=== PATIENT | female | born 2000 | race Caucasian/White ===

== ENCOUNTER 2022-10-10 17:39 | Emergency (ER) | payer OTHER, SELFPAY ==
[2022-10-10 17:50] VITALS: BP 140/75; PULSE 109; RESP 16; TEMP 37.2; O2SAT 98
--- NOTE | 2022-10-10 17:59 | ED.URI ---
HPI - URI/Sore Throat General Chief Complaint: Upper Respiratory Infection Stated Complaint: Sore Throat Time Seen by Provider: 10/10/22 17:59 History of Present Illness HPI Narrative: PATIENT STATES SHE HAS A SORE THROAT THAT STARTED TODAY HISTORY OF STREP NO FEVER NO TROUBLE SWALLOWING Related Data Home Medications Medication Instructions Recorded Confirmed bupropion HCl 300 mg 24 hr tablet, 300 mg PO QAM 10/10/22 10/10/22 extended release hydroxyzine HCl 25 mg tablet 25 mg PO TID PRN Anxiety 10/10/22 10/10/22 sertraline 100 mg tablet 100 mg PO DAILY 10/10/22 10/10/22 Allergies Allergy/AdvReac Type Severity Reaction Status Date / Time amoxicillin Allergy Intermediate Rash Verified 10/10/22 18:09 clonidine AdvReac Intermediate Nausea and Verified 10/10/22 18:10 Vomiting sulfamethoxazole AdvReac Intermediate Nausea and Verified 10/10/22 18:08 [From Bactrim] Vomiting trimethoprim [From Bactrim] AdvReac Intermediate Nausea and Verified 10/10/22 18:08 Vomiting Review of Systems Review of Systems: CONSTITUTIONAL: DENIES FEVER, CHILLS, OR SWEATS. EYES: DENIES VISUAL CHANGES, REDNESS, OR DISCHARGE. ENT: DENIES RHINORRHEA, CONGESTION, SORE THROAT, OR OTALGIA. CARDIOVASCULAR: DENIES CHEST PAIN, PALPITATIONS, OR EDEMA. RESPIRATORY: DENIES COUGH OR DYSPNEA. GASTROINTESTINAL: DENIES ABDOMINAL PAIN, NAUSEA, VOMITING, OR DIARRHEA. GENITOURINARY: DENIES DYSURIA OR HEMATURIA. SKIN: DENIES RASH OR ITCHING. MUSCULOSKELETAL: DENIES BACK PAIN, JOINT PAIN, OR MYALGIA. NEUROLOGIC: DENIES HEADACHE, NUMBNESS, OR WEAKNESS. PSYCHIATRIC: DENIES ANXIETY OR DEPRESSION. PMFSH Comments AT TIME OF SIGNATURE, AGREE WITH NURSING PAST MEDICAL, SURGICAL, SOCIAL AND FAMILY HISTORY. THERE IS NO RELEVANT FAMILY HISTORY PERTINENT TO THE PRESENTING COMPLAINT Exam Narrative: GENERAL: WELL-APPEARING, WELL-NOURISHED, AND IN NO ACUTE DISTRESS. HEAD: NORMOCEPHALIC, ATRAUMATIC. EYES: PERRLA AND EOMI. ENT: NARES CLEAR, NO RHINORRHEA OR EPISTAXIS. MUCOUS MEMBRANES MOIST. MILD PHARYNGEAL EDEMA NO EXUDATE NECK: SUPPLE. CHEST: CLEAR TO AUSCULTATION. NO RESPIRATORY DISTRESS. HEART: REGULAR RATE AND RHYTHM. NO MURMUR HEARD. NORMAL PERIPHERAL PULSES. ABDOMEN: SOFT, NONTENDER, NONDISTENDED, NORMAL ACTIVE BOWEL SOUNDS. EXTREMITIES: NORMAL RANGE OF MOTION. NO EDEMA. SKIN: WARM, DRY, NO RASH. NEURO: NO FOCAL DEFICITS. ALERT AND ORIENTED X3. MYRON COMA SCALE EYE OPENING: SPONTANEOUS 4 MYRON COMA SCALE MOTOR: OBEYS COMMANDS 6 MYRON COMA SCALE VERBAL: ORIENTED 5 MYRON COMA SCALE TOTAL 15 Course Course Level of Care: Express Care Visit Vital Signs Vital signs: Vital Signs Temperature 37.2 C 10/10/22 17:50 Pulse Rate 109 H 10/10/22 17:50 Respiratory Rate 16 10/10/22 17:50 Blood Pressure 140/75 10/10/22 17:50 Pulse Oximetry 98 10/10/22 17:50 Oxygen Delivery Room Air 10/10/22 17:50 Temperature 37.2 C 10/10/22 17:50 Pulse Rate 109 H 10/10/22 17:50 Respiratory Rate 16 10/10/22 17:50 Blood Pressure 140/75 10/10/22 17:50 Pulse Oximetry 98 10/10/22 17:50 Oxygen Delivery Room Air 10/10/22 17:50 PLEASE EDDIE SCHEDULE A FOLLOWUP VISIT WITH YOUR PERSONAL PHYSICIAN FOR FURTHER EVALUATION AND TREATMENT. INCLUDING RECHECK AND DISCUSSION OF YOUR BLOOD PRESSURE. IF YOUR SYMPTOMS PERSIST, CHANGE OR WORSEN SIGNIFICANTLY BEFORE YOU CAN CONTACT YOUR PERSONAL PHYSICIAN THEN PLEASE, WITHOUT DELAY, GO TO THE EMERGENCY DEPARTMENT FOR FURTHER EVALUATION MDM - URI/Sore Throat Differential Diagnosis Differential diagnosis: Likely upper respiratory infection, croup, otitis media, sinusitis, viral infection, bronchitis, influenza and pharyngitis Lab Data Labs: Strep Screen Positive Group A Strep *(Reference Range: Negative)* Strep Screen Positive Group A Strep *(Reference Range: Negative)* Discharge Plan D
== END 2022-10-10 18:10 | disposition home or self-care (01) ==
PROVIDERS: Emergency Provider Nurse Practitioner Family; PCP Family Medicine
DX: J02.0 Streptococcal pharyngitis (principal); F41.9 Anxiety disorder, unspecified; F32.A Depression, unspecified
CPT/HCPCS: 87880; 99213; G0463

== ENCOUNTER 2022-12-20 08:48 | Outpatient (CLI) | payer OTHER, SELFPAY ==
[2022-12-20 16:46] LABS: Hematocrit 44.2 % (37.0-47.0); Hemoglobin 14.2 g/dL (12.0-15.0); Mean Corpuscular HGB Conc 32.1 g/dl (32-36); Mean Corpuscular Hemoglobin 29.6 pg (26-34); Mean Corpuscular Volume 92.1 fl (80-100); Mean Platelet Volume 9.7 fl (7.4-10.4); Platelet Count Result 362 k/mm3 (150-375); White Blood Count 7.8 K/mm3 (4.5-10.0)
[2022-12-20 17:46] LABS: Alanine Aminotransferase 19 U/L (6-35); Albumin Level 4.3 g/dL (3.5-5.1); Alkaline Phosphatase 93 U/L (38-126); Anion Gap 10 mmol/L (8-16); Aspartate Amino Transferase 56 U/L (14-36); Bilirubin,Total 0.4 mg/dL (0.2-1.3); Blood Urea Nitrogen 15 mg/dL (7-17); Calcium 8.8 mg/dL (8.4-10.2); Carbon Dioxide 22 mmol/L (22-30); Chloride 107 mmol/L (98-107); Cholesterol 197 mg/dL (0-200); Estimated Glomerular Filt Rate > 60; Glucose 90 mg/dL (65-110); HDL Direct 42 mg/dL; Potassium 3.6 mmol/L (3.4-5.0); Sodium 139 mmol/L (137-145); Triglycerides 114 mg/dL (<150)
[2022-12-20 17:57] LABS: LDL Cholesterol Direct 112 mg/dL
[2022-12-20 18:07] LABS: Vitamin D 25 Hydroxy 24.7 ng/mL
== END 2022-12-20 08:49 | disposition home or self-care (01) ==
LOC: ANHWCLAB 08:53
PROVIDERS: PCP Family Medicine; Visit Provider Family Medicine
DX: Z00.00 Encounter for general adult medical examination without abnormal findings (principal); F32.A Depression, unspecified; F41.9 Anxiety disorder, unspecified; G43.909 Migraine, unspecified, not intractable, without status migrainosus
CPT/HCPCS: 36415; 80053; 80061; 82306; 85027

== ENCOUNTER 2023-03-25 11:57 | Emergency (ER) | payer OTHER, SELFPAY ==
--- NOTE | 2023-03-25 12:01 | ED.URI ---
HPI - URI/Sore Throat General Chief Complaint: Upper Respiratory Infection Stated Complaint: sore throat Time Seen by Provider: 03/25/23 12:17 Source: patient and RN notes reviewed Mode of arrival: ambulatory Limitations: no limitations History of Present Illness HPI Narrative: 22-year-old female presents concern for sore throat that started yesterday. She reports ear pain. She denies body aches, chills, sweats, fever. She denies taking any medications for her symptoms. MD elicited complaint: sore throat Related Data Allergies Allergy/AdvReac Type Severity Reaction Status Date / Time amoxicillin Allergy Intermediate Rash Verified 03/25/23 12:22 brivaracetam Allergy Unknown Unknown Verified 03/25/23 12:22 buspirone Allergy Unknown Unknown Verified 03/25/23 12:22 levetiracetam Allergy Unknown Unknown Verified 03/25/23 12:22 clonidine AdvReac Intermediate Nausea and Verified 03/25/23 12:22 Vomiting sulfamethoxazole AdvReac Intermediate Nausea and Verified 03/25/23 12:22 [From Bactrim] Vomiting trimethoprim [From Bactrim] AdvReac Intermediate Nausea and Verified 03/25/23 12:22 Vomiting Review of Systems Review of Systems: CONSTITUTIONAL: Denies malaise, chills, sweats, or fever. EYES: Denies visual changes, redness, or discharge. ENT: Denies rhinorrhea, congestion, sinus pain. Reports otalgia and sore throat. CARDIOVASCULAR: Denies chest pain, palpitations, or edema. RESPIRATORY: Denies cough. Denies dyspnea. GASTROINTESTINAL: Denies abdominal pain, nausea, vomiting, diarrhea SKIN: Denies rash or itching. MUSCULOSKELETAL: Denies myalgia. NEUROLOGIC: Denies headache. All systems reviewed & are unremarkable except as noted in HPI and below PMFSH Family History Family History (Updated 12/13/22 @ 07:17 by Kay Carpio MA) Father Diabetes mellitus Hypertension Depression Heart disease Sleep apnea Mother Hypertension Depression Sibling Depression Sleep apnea Grandparent Hypertension Heart disease Cerebrovascular accident Grandparent Hypertension Heart disease Sleep apnea Social History Social History (Updated 12/13/22 @ 07:18 by Kay Carpio MA) Smoking status: Never smoker Alcohol intake: never Substance use: never Substance use type: does not use Lack of Transportation: No Lack of Food: Never True Current Housing: I Have Housing Concerned About Future Housing: No Difficulty Paying Gas/Electric Bills: No Difficulty Paying for Meds: No Currently Unemployed: No Education: Bachelor's Degree Difficulty w/ Childcare or Family Care: No Living arrangements: with family Gender identity (if verbalized by the patient): Female Agree to blood products: Yes Comments At time of signature, agree with nursing past medical, surgical, social and family history. There is no relevant family history pertinent to the presenting complaint Exam Narrative: GENERAL: Well-appearing, well-nourished, and in no acute distress. HEAD: Normocephalic EYES: PERRLA, conjunctivae clear ENT: Nares clear. Mucous membranes moist. TM pearly [place] with sharp light reflex bilaterally; no tragal tenderness. Oropharynx erythematous without lesions. Tonsils not enlarged and without exudate, no drooling, no hoarseness, no trismus, uvula midline. NECK: Supple. No lymphadenopathy CHEST: Clear to auscultation, breath sounds equal. No wheezing, rhonchi, rales, or stridor. No respiratory distress, speaks in full sentences. HEART: Regular rate and rhythm. No murmur heard. SKIN: Warm, dry, no rash. NEURO: Alert and oriented x3. PSYCH: Normal mood and affect Course Course Emergency Course: Patient is aware of diagnosis, understands and agrees to treatment plan. Anticipatory guidance given. Patient agrees to follow-up as directed and is aware of reasons to seek care at the emergency department. Portions of this record may have been created with voice recognition software
[2023-03-25 12:02] VITALS: BP 120/58; PULSE 87; RESP 18; TEMP 36.4; O2SAT 99
== END 2023-03-25 12:25 | disposition home or self-care (01) ==
PROVIDERS: Emergency Provider Nurse Practitioner; PCP Family Medicine
DX: J02.0 Streptococcal pharyngitis (principal)
CPT/HCPCS: 87880; 99213; G0463

== ENCOUNTER 2023-06-08 11:14 | Outpatient (CLI) | payer OTHER, SELFPAY ==
[2023-06-08 19:00] LABS: Hematocrit 45.2 % (37.0-47.0); Hemoglobin 14.5 g/dL (12.0-15.0); Mean Corpuscular HGB Conc 32.1 g/dl (32-36); Mean Corpuscular Hemoglobin 30.5 pg (26-34); Mean Corpuscular Volume 95.2 fl (80-100); Mean Platelet Volume 10.1 fl (7.4-10.4); Platelet Count Result 362 k/mm3 (150-375); Red Blood Count 4.75 M/mm3 (4.2-5.4); Red Cell Distribution Width 12.8 % (11.5-14.5); White Blood Count 8.3 K/mm3 (4.5-10.0)
[2023-06-08 19:21] LABS: Add Urine Microscopic? YES; Appearance Urine Turbid (Clear); Bacteria Urine 3+ /hpf; Bilirubin Urine Negative (Negative); Color Urine Dark Yellow (Yellow); Glucose Urine UA Negative (Negative); Ketones Urine Negative (Negative); Leukocyte Esterase Ur 3+ LEU/UL (NEGATIVE); Need Manual Microscopic Reviewed; Nitrate Urine Negative (Negative); Protein Urine Trace mg/dL (Negative); Specific Grav Ur 1.024 (1.001-1.035); Squamous Epithelial Cell Urine Moderate /hpf (Few); WBC Urine 0-5 /hpf (0-3); pH Urine 7.5 (5.0-9.0)
[2023-06-08 20:10] LABS: Alanine Aminotransferase 17 U/L (6-35); Albumin Level 4.4 g/dL (3.5-5.1); Alkaline Phosphatase 70 U/L (38-126); Anion Gap 5 mmol/L (8-16); Aspartate Amino Transferase 85 U/L (14-36); Bilirubin,Total 0.5 mg/dL (0.2-1.3); Blood Urea Nitrogen 11 mg/dL (7-17); Calcium 9.2 mg/dL (8.4-10.2); Carbon Dioxide 32 mmol/L (22-30); Chloride 105 mmol/L (98-107); Estimated Glomerular Filt Rate > 60; Glucose 74 mg/dL (65-110); Sodium 142 mmol/L (137-145)
[2023-06-08 20:18] LABS: Iron 122 ug/dL (37-170)
[2023-06-08 20:27] LABS: Percent Iron Saturation 37 % (20-50)
[2023-06-08 21:21] LABS: Folic Acid > 20.0 ng/mL (2.76->20)
[2023-06-11 04:21] LABS: Thyroid Peroxidase Antibodies <1 IU/mL (<9)
== END 2023-06-08 11:15 | disposition home or self-care (01) ==
PROVIDERS: PCP Nurse Practitioner Adult Health; Visit Provider Nurse Practitioner Adult Health
DX: R55 Syncope and collapse (principal)
CPT/HCPCS: 36415; 80053; 81001; 82607; 82728; 82746; 83540; 83550; 84439; 84443; 85027; 86376

== ENCOUNTER 2023-08-01 08:22 | Outpatient (CLI) | payer OTHER, SELFPAY ==
--- NOTE | 2023-08-01 08:36 | EST_ITS ---
Patient Info Name: Linn Mosher Age: 22 years : 2000 Gender: Female Ht: 66 in Wt: 220 lbs BSA: 2.20 m2 HR: 63 bpm BP: 106 / 74 mmHg Heart Rhythm: Sinus Rhythm Exam Date: 08/01/2023 8:48 AM Exam Location: Echo Lab Patient Status: Outpatient Admit Date: 08/01/2023 Staff Ordering Physician: Torito Mcderomtt DO Attending Provider: Torito Mcdermott DO Exercise Technologist: Florence White CT Exercise Physician: Torito Mcdermott DO Exam Type: CA stress test treadmill Study Info Indications R07.89 - Other chest pain A treadmill exercise stress test was performed. Summary 1. 1. Negative Julio exercise stress test for ischemic ST changes by ECG criteria. 2. 2. Reduced functional capacity, achieving 8 METs of workload. 3. 3. Appropriate HR response to exercise. 4. 4. Appropriate HR recovery at 1 minute post exercise. 5. 5. No imaging with stress testing. 6. 6. Patient informed of the above results. Protocol: Julio Stress ECG Details Stage: REST Duration (min): 1 min : 18 sec Speed (mph): 0.0 Grade (%): 0 HR (bpm): 66 SBP (mmHg): 106 DBP (mmHg): 74 METS: --- Stage: REST Duration (min): 4 min : 36 sec Speed (mph): 0.0 Grade (%): 0 HR (bpm): 74 SBP (mmHg): 106 DBP (mmHg): 74 METS: --- Stage: STAGE 1 Duration (min): 1 min : 0 sec Speed (mph): 1.7 Grade (%): 10 HR (bpm): 111 SBP (mmHg): 106 DBP (mmHg): 74 METS: --- Stage: STAGE 1 Duration (min): 2 min : 0 sec Speed (mph): 1.7 Grade (%): 10 HR (bpm): 119 SBP (mmHg): 106 DBP (mmHg): 74 METS: --- Stage: STAGE 1 Duration (min): 3 min : 0 sec Speed (mph): 1.7 Grade (%): 10 HR (bpm): 126 SBP (mmHg): 122 DBP (mmHg): 58 METS: --- Stage: STAGE 2 Duration (min): 1 min : 0 sec Speed (mph): 2.5 Grade (%): 12 HR (bpm): 140 SBP (mmHg): 122 DBP (mmHg): 58 METS: --- Stage: STAGE 2 Duration (min): 2 min : 0 sec Speed (mph): 2.5 Grade (%): 12 HR (bpm): 149 SBP (mmHg): 194 DBP (mmHg): 112 METS: --- Stage: STAGE 2 Duration (min): 3 min : 0 sec Speed (mph): 2.5 Grade (%): 12 HR (bpm): 158 SBP (mmHg): 122 DBP (mmHg): 60 METS: --- Stage: STAGE 3 Duration (min): 0 min : 45 sec Speed (mph): 3.4 Grade (%): 14 HR (bpm): 166 SBP (mmHg): 122 DBP (mmHg): 60 METS: --- Stage: RECOVERY Duration (min): 0 min : 15 sec Speed (mph): 1.5 Grade (%): 0 HR (bpm): 150 SBP (mmHg): 184 DBP (mmHg): 71 METS: --- Stage: RECOVERY Duration (min): 1 min : 15 sec Speed (mph): 0.0 Grade (%): 0 HR (bpm): 130 SBP (mmHg): 184 DBP (mmHg): 71 METS: --- Stage: RECOVERY Duration (min): 2 min : 15 sec Speed (mph): 0.0 Grade (%): 0 HR (bpm): 84 SBP (mmHg): 184 DBP (mmHg): 71 METS: --- Stage: RECOVERY Duration (min): 3 min : 15 sec Speed (mph): 0.0 Grade (%): 0 HR (bpm): 91 SBP (mmHg): 168 DBP (mmHg): 64 ME
--- NOTE | 2023-08-01 08:36 | ECHO_ITS ---
Patient Info Name: Linn Mosher Age: 22 years : 2000 Gender: Female Ht: 65 in Wt: 220 lbs BSA: 2.18 m2 HR: 71 bpm BP: 103 / 84 mmHg Technical Quality: Good Exam Date: 08/01/2023 9:08 AM Exam Location: Echo Lab Patient Status: Outpatient Admit Date: 08/01/2023 Staff Ordering Physician: Torito Mcdermott DO Tooling Mechanic: Veda Mayberry RDCS Attending Provider: Torito Mcdermott DO Referring Physician: Baldemar COBIAN; Exam Type: CA echo doppler color flow Study Info Indications R55 - Syncope and collapse Complete two-dimensional, color flow and Doppler transthoracic echocardiogram is performed. Summary 1. Complete two-dimensional, color flow and Doppler transthoracic echocardiogram is performed. 2. Left ventricular chamber dimension is normal. 3. Left ventricular systolic function is normal, estimated at 60-65%. 4. The left ventricular diastolic function is normal. 5. E/e' 8 is minimally elevated. 6. There is trace pulmonic regurgitation. Left Ventricle E/e' 8 is minimally elevated. Left ventricular chamber dimension is normal. Left ventricular systolic function is normal, estimated at 60-65%. The left ventricular diastolic function is normal. Right Ventricle Right ventricular chamber dimension is normal. Right ventricular systolic function is normal. Left Atria Left atrial chamber dimension is normal. Right Atria Right atrial chamber dimension is normal. Aortic Valve The aortic valve is trileaflet. There is no aortic valve stenosis. There is no aortic valve regurgitation. Pulmonic Valve There is trace pulmonic regurgitation. Mitral Valve There is no mitral valve stenosis. There is no mitral valve regurgitation. Tricuspid Valve There is no tricuspid valve regurgitation. Pericardium/Pleural There is no pericardial effusion. Inferior Vena Cava Normal inferior vena cava with >50% collapse upon inspiration consistent with normal right atrial pressure, 5 mmHg. Aorta The aortic root size at the sinus of Valsalva is normal. Left Ventricular Outflow Tract Name Value Normal LVOT 2D LVOT Diameter 2.0 cm LVOT Doppler LVOT Peak Gradient 4 mmHg LVOT Mean Gradient 2 mmHg LVOT VTI 21 cm LVOT VTI/AV VTI Ratio 0.8 LVOT Stroke Volume 64 ml LVOT CO 3.7 l/min LVOT CI 1.7 l/min/m2 Pulmonic Valve Name Value Normal RVOT Doppler RVOT Peak Gradient 1 mmHg PV Doppler PV Peak Gradient 6 mmHg Mitral Valve Name Value Normal MV Doppler ---
== END 2023-08-01 08:23 | disposition home or self-care (01) ==
LOC: ANHCARD 08:23
PROVIDERS: PCP Nurse Practitioner Adult Health; Visit Provider Internal Medicine Cardiovascular Disease
DX: R07.9 Chest pain, unspecified (principal); R55 Syncope and collapse
CPT/HCPCS: 74018; 93017; 93306

== ENCOUNTER 2023-08-01 11:32 | Outpatient (CLI) | payer OTHER, SELFPAY ==
--- NOTE | ~2023-08-01 | XR_ITS ---
Supine and upright views of the abdomen Clinical history: Diarrhea Findings: Bowel gas pattern is nonspecific. No evidence for obstruction or free air. No abnormal mass lesion or calcification is seen. Osseous structures are intact. IUD present. Impression: No significant abnormality is seen. Reviewed, dictated and finalized at [facility]. [employer]ING [employer]UTION [employer] Impression: No significant abnormality is seen.
== END 2023-08-01 11:33 | disposition home or self-care (01) ==
LOC: ANHBWCIMG 11:34
PROVIDERS: PCP Nurse Practitioner Adult Health; Visit Provider Nurse Practitioner Adult Health
DX: K52.9 Noninfective gastroenteritis and colitis, unspecified (principal)
CPT/HCPCS: 74018

== ENCOUNTER 2023-12-19 11:56 | Outpatient (CLI) | payer OTHER, SELFPAY ==
[2023-12-19 18:50] LABS: Appearance Urine Cloudy (Clear); Bacteria Urine 2+ /hpf; Bilirubin Urine Negative (Negative); Blood Urine Negative (Negative); Color Urine Yellow (Yellow); Glucose Urine UA Negative (Negative); Ketones Urine Trace mg/dL (Negative); Leukocyte Esterase Ur Trace LEU/UL (Negative); Need Manual Microscopic Reviewed; Nitrate Urine Negative (Negative); Protein Urine Trace mg/dL (Negative); RBC Urine 0-2 /hpf (0-2); Specific Grav Ur 1.025 (1.001-1.035); Squamous Epithelial Cell Urine Many /hpf (Few); Urobilinogen Urine 0.2 mg/dL (<2.0); WBC Urine 0-5 /hpf (0-3); pH Urine 8.5 (5.0-9.0)
[2023-12-19 18:52] LABS: Add Urine Microscopic? YES
== END 2023-12-19 11:57 | disposition home or self-care (01) ==
PROVIDERS: PCP Nurse Practitioner Adult Health; Visit Provider Nurse Practitioner Adult Health
DX: R39.9 Unspecified symptoms and signs involving the genitourinary system (principal)
CPT/HCPCS: 81001; 87086; 87088

== ENCOUNTER 2024-03-13 14:18 | Outpatient (CLI) | payer OTHER, SELFPAY ==
[2024-03-13 19:35] LABS: Appearance Urine Clear (Clear); Bacteria Urine Rare /hpf; Bilirubin Urine Negative (Negative); Blood Urine Negative (Negative); Color Urine Yellow (Yellow); Glucose Urine UA Negative (Negative); Ketones Urine Negative (Negative); Leukocyte Esterase Ur 1+ LEU/UL (Negative); Need Manual Microscopic Reviewed; Nitrate Urine Negative (Negative); Non Pathogenic Casts 0-2; Protein Urine Negative (Negative); RBC Urine 0-2 /hpf (0-2); Specific Grav Ur 1.022 (1.001-1.035); Squamous Epithelial Cell Urine Occasional /hpf (Few); Urobilinogen Urine 0.2 mg/dL (<2.0); WBC Urine 0-5 /hpf (0-3); pH Urine 5.5 (5.0-9.0)
[2024-03-13 19:36] LABS: Add Urine Microscopic? YES
== END 2024-03-13 14:19 | disposition home or self-care (01) ==
PROVIDERS: PCP Nurse Practitioner Adult Health; Visit Provider Nurse Practitioner Adult Health
DX: R39.9 Unspecified symptoms and signs involving the genitourinary system (principal)
CPT/HCPCS: 81001; 87086; 87088

== ENCOUNTER 2024-09-05 16:02 | Outpatient (CLI) | payer OTHER, SELFPAY ==
--- NOTE | ~2024-09-05 | XR_ITS ---
EXAMINATION: XR hip RT min 2V DATE: 09/05/2024 16:20 INDICATION: Right hip pain. TECHNIQUE: 2 views of right hip were obtained. COMPARISON: None. FINDINGS: Alignment is normal. No fracture. Right hip joint space is normal. There is an intrauterine device in expected position. IMPRESSION: 1. Normal right hip. Reviewed, dictated and finalized at location A. [employer] IMPRESSION: 1. Normal right hip.
[2024-09-05 18:34] LABS: Hematocrit 42.5 % (37.0-47.0); Hemoglobin 14.4 g/dL (12.0-15.0); Mean Corpuscular HGB Conc 33.9 g/dl (32-36); Mean Corpuscular Hemoglobin 30.7 pg (26-34); Mean Corpuscular Volume 90.6 fl (80-100); Mean Platelet Volume 10.1 fl (7.4-10.4); Platelet Count Result 302 k/mm3 (150-375); Red Blood Count 4.69 M/mm3 (4.2-5.4); Red Cell Distribution Width 13.1 % (11.5-14.5); White Blood Count 5.8 K/mm3 (4.5-10.0)
[2024-09-05 18:41] LABS: Alanine Aminotransferase 13 U/L (6-35); Albumin Level 4.2 g/dL (3.5-5.1); Alkaline Phosphatase 87 U/L (38-126); Anion Gap 5 mmol/L (4-12); Aspartate Amino Transferase 35 U/L (14-36); Bilirubin,Total 0.4 mg/dL (0.2-1.3); Blood Urea Nitrogen 11 mg/dL (7-17); Calcium 9.2 mg/dL (8.4-10.2); Carbon Dioxide 28 mmol/L (22-30); Chloride 106 mmol/L (98-107); Estimated Glomerular Filt Rate > 60; Glucose 91 mg/dL (65-110); Potassium 3.5 mmol/L (3.4-5.0); Sodium 139 mmol/L (137-145); Uric Acid 5.1 mg/dL (2.5-7.5)
[2024-09-05 19:57] LABS: Erythrocyte Sedimentation Rate 12 mm/hr (0-20)
[2024-09-07 15:43] LABS: ANA Cascade Screen NEGATIVE (NEGATIVE)
== END 2024-09-05 16:03 | disposition home or self-care (01) ==
LOC: ANHBWCLAB 16:04
PROVIDERS: PCP Nurse Practitioner Adult Health; Visit Provider Nurse Practitioner Adult Health
DX: M25.551 Pain in right hip (principal); M25.50 Pain in unspecified joint; Z13.9 Encounter for screening, unspecified
CPT/HCPCS: 36415; 73502; 80053; 84550; 85027; 85652; 86038; 86225; 86235; 86364

== ENCOUNTER 2025-01-11 08:15 | Emergency (ER) | payer OTHER, SELFPAY ==
--- NOTE | ~2025-01-11 | XR_ITS ---
EXAMINATION: XR abdomen/kub 1V DATE: 01/11/2025 08:39 INDICATION: Abdomen cramping and nausea TECHNIQUE: A supine view of the abdomen on 2 radiographs was obtained. COMPARISON: 08/01/2023 FINDINGS: Normal bowel gas pattern with moderate amount of gas and stool in the proximal colon. No dilated gas- filled loops of bowel to suggest obstruction. There are few phleboliths in the pelvis. Also a T-shape d IUD projecting over the central pelvis. Lung bases are clear. Heart size is normal. Bones are unrem arkable. IMPRESSION: 1. Normal bowel gas pattern. Reviewed, dictated and finalized at location A.
--- NOTE | 2025-01-11 08:17 | ED_ITS ---
HPI - Nausea/Vomiting/Diarrhea General Chief complaint: Abdominal Pain Stated complaint: severe abd cramping/nausea/mendieta Time Seen by Provider: 01/11/25 08:16 Source: patient Mode of arrival: ambulatory Limitations: no limitations History of Present Illness HPI Narrative: Linn is a 24-year-old female patient presenting to the clinic today with complaints of abdominal cramping, nausea, and headache x3 days. She reports no known fevers, chills, or body aches. Denies any urinary symptoms. Last bowel movement was yesterday-had 3 bowel movements. Has upper abdominal cramping that is constant. Denies GERD symptoms. Has taken her migraine medicine for the headache. Denies chance of . Has IUD. Related Data Home Medications ?Medication ?Instructions ?Recorded ?Confirmed ?Last Taken ?Type hydroxyzine HCl 25 mg tablet 25 mg PO BID PRN 07/01/23 11/01/24 Unknown History Allergies Allergy/AdvReac Type Severity Reaction Status Date / Time amoxicillin Allergy Intermediate Rash Verified 01/11/25 08:27 brivaracetam Allergy Unknown Unknown Verified 01/11/25 08:27 buspirone Allergy Unknown Unknown Verified 01/11/25 08:27 levetiracetam Allergy Unknown Unknown Verified 01/11/25 08:27 clonidine AdvReac Intermediate Nausea and Verified 01/11/25 08:27 Vomiting sulfamethoxazole (From AdvReac Intermediate Nausea and Verified 01/11/25 08:27 Bactrim) Vomiting trimethoprim (From Bactrim) AdvReac Intermediate Nausea and Verified 01/11/25 08:27 Vomiting Review of Systems Review of Systems: Pertinent positives per HPI. Patient denies any fever, chills, rash, headache, visual changes, dizziness, cough, runny nose, sore throat, shortness of breath, chest pain, palpitations, vomiting, diarrhea, or any urinary issues. [facility] Family History Family History Father Diabetes mellitus Hypertension Depression Heart disease Sleep apnea Mother Hypertension Depression Sibling Depression Sleep apnea Grandparent Hypertension Heart disease Cerebrovascular accident Grandparent Hypertension Heart disease Sleep apnea Social History Social History Smoking status: Never smoker Alcohol intake: never Substance use: never Substance use type: does not use Do You Feel Safe in your Home?: Yes Lack of Transportation: No Lack of Food: Never True Current Housing: I Have Housing Concerned About Future Housing: No Difficulty Paying Gas/Electric Bills: No Difficulty Paying for Meds: No Currently Unemployed: No Education: Bachelor's Degree Difficulty w/ Childcare or Family Care: No Living arrangements: with family Gender identity (if verbalized by the patient): Female Agree to blood products: Yes Comments At the time of my signature, I reviewed and agree with the nursing past medical, surgical, social, and family history. There is no relevant family history pertinent to the patient complaint. Exam Narrative: General: Well-developed, obese, in no apparent distress. Head: Normocephalic, atraumatic. Cardio: Regular rate and rhythm, s1 and s2 normal, no murmur appreciated. Resp: Clear to auscultation bilaterally, no rhonchi, rales, wheezing or rubs. Abdomen: Soft, pliable, bowel sounds present in all quadrants, generalized to palpation, no organomegly, no CVAT tenderness. Course Course Emergency Course: Portions of this record may have been created with voice recognition software. Level of Care: Express Care Visit Vital Signs Vital signs: Vital Signs Temperature 36.2 C L 01/11/25 08:20 Pulse Rate 75 01/11/25 08:20 Respiratory Rate 16 01/11/25 08:20 Blood Pressure 110/70 01/11/25 08:20 Pulse Oximetry 99 01/11/25 08:20 Oxygen Delivery Room Air 01/11/25 08:20 Temperature 36.2 C L 01/11/25 08:20 Pulse Rate 75 01/11/25 08:20 Respiratory Rate 16 01/11/25 08:20 Blood Pressure 110/70 01/11/25 08:20 Pulse Oximetry 99 01/11/25 08:20 Oxygen Delivery Room Air 01/11/25 08:20 Vital signs reviewed MDM - Nausea/Vomiting/Diarrhea MDM Narrative Medical decision making narrative: At the time of visit patient is resting comfortably on the exam table. Patient appears to be nontoxic. Labs: Urinalysis positive for protein, leukocytes, and blood. We will send urine for culture. Bedside test was negative. Diagnostics: KUB x-ray shows normal bowel gas pattern with some stool in the proximal colon. No sign of obstruction Plan: I suspect patient has UTI. Prescription for Macrobid was sent to pharmacy. We will also send Zofran for nausea. Supportive measures were discussed with the patient and they voiced understanding discharge instructions and agrees to treatment plan. Return precautions reviewed Differential Diagnosis Differential diagnosis: Likely traveler's diarrhea, food poisoning, gastroenteritis, clostridium difficile infection, drug-induced nausea and vomiting, dehydration and other (COVID) Lab Data Labs: Lab Results 01/11/25 Range/Units 08:44 POC Urine Color Tea colored POC Urine Clarity Cloudy POC Urine pH 6.0 POC Ur Specif [place] 1.030 POC Urine Protein Trace (Negative) POC Ur Glucose (UA) Negative (Negative) POC Urine Ketones Negative (Negative) POC Urine Blood Trace (Negative) POC Urine Nitrite Negative (Negative) POC Urine Bilirubin Negative (Negative) POC Urine Urobilinogen 0.2 POC U Leukocyte Esteras 3+ (Negative) POC Urine HCG, Qual Negative (Negative) Imaging Data Radiologist's impression: ITS Impressions Abdomen X-Ray 01/11/25 08:41 IMPRESSION: 1. Normal bowel gas pattern. Discharge Plan Discharge Clinical Impression: Urinary tract infection Qualifiers: Urinary tract infection type: acute cystitis Hematuria presence: with hematuria Qualified Code(s): N30.01 - Acute cystitis with hematuria Patient Disposition: Home Condition: Stable Instructions: Antibiotic Form, Urinary Tract Infection in Women (ED) Additional Instructions: Urinalysis is positive for leukocytes, protein, and blood. We will send urine for culture. Urine test was negative KUB x-ray was negative for any sign of obstruction or constipation. Increase fluids and stay well hydrated Wipe front to back. May use wet wipes. Avoid tub baths If sexually active- pee before and after intercourse. Wear cotton panties Avoid tight clothing up against the genitals Follow up with your PCP in 1 week if symptoms persist. Patient Language: Urdu Prescriptions: New nitrofurantoin monohyd/m-cryst [Macrobid] 100 mg capsule 100 mg PO Q12H 5 Days Qty: 10 0RF Rx Instructions: must administer with a meal/food ondansetron 4 mg tablet,disintegrating 4 mg PO Q6H PRN (Reason: nausea and vomiting) 3 Days Qty: 12 0RF No Action hydroxyzine HCl 25 mg tablet 25 mg PO BID PRN Qulipta 60 mg tablet 60 mg PO DAILY Qty: 90 3RF sertraline 100 mg tablet See Rx Instructions .ROUTE .COMPLEX Qty: 90 3RF Dose Instruction: TAKE 1 TABLET BY MOUTH EVERY DAY Rx Instructions: TAKE 1 TABLET BY MOUTH EVERY DAY Follow-up/Referrals: Harper Araujo APRN [Primary Care Provider] - Stand Alone Forms: Work/School Release IP Time of Disposition: 08:51 Quality NIHSS Nursing Documentation ED NIHSS nursing documentation: reviewed/agree
[2025-01-11 08:20] VITALS: BP 110/70; PULSE 75; RESP 16; TEMP 36.2; O2SAT 99
--- OUTSIDE RECORDS SUMMARY | 2025-01-11 08:21 | XMS_ITS | Clinical Summary ---
Author Organization [facility] Medical Office Building [address] Address [address] [place] [address] Care Team Providers Care Cryptographic Machine Operator Name Role Phone Blessingrosi Harper SHABNAM Primary Care Provider [phone] Allergies Active Allergy Reactions Criticality Noted Date Comments Amoxicillin Other (See comments),Rash,Unkn own High 10/10/2022 Brivaracetam Other (See comments) Low 07/19/2018 Does not remember Buspirone Other (See comments) Low 02/22/2022 Hypertension Clonidine Other (See comments),Nausea & Vomiting High 07/19/2018 She does not remember Levetiracetam Other (See comments) Low 03/23/2018 Sore throat Metronidazole Unknown 07/24/2024 Norethindrone Ac-Eth Estradiol Unknown 07/24/2024 Sulfa Rash Medium 09/05/2017 Sulfamethoxazole Stomach upset Reaction: GI problems, Sulfamethoxazole-Trimethop rim Rash Medium 03/06/2010 Trimethoprim Stomach upset,Nausea & Vomiting High 10/10/2022 Reaction: GI problems, Medications acetaminophen (TYLENOL) 325 mg tablet Take 1 tablet (325 mg total) by mouth every 4 hours Active ibuprofen (ADVIL,MOTRIN) 200 mg tab/cap Take 1 tablet/capsule (200 mg total) by mouth every 6 hours Active levonorgestreL (MIRENA) IUD 1 each by intrauterine route once Active sertraline (ZOLOFT) 100 mg tablet TAKE 1 TABLET BY MOUTH EVERY DAY FOR 30 DAYS 2 Active hydrOXYzine (ATARAX) 25 mg tabletIndicatio ns:RAMSEY (generalized anxiety disorder) TAKE 1 TABLET BY MOUTH TWICE A DAY NEEDED FOR ANXIETY 60 tablet 1 2 Active Qulipta 60 mg tablet Take 1 tablet by mouth daily 4 Active Active Problems Problem Noted Date Diagnosed Date Physical exam, annual 04/26/2022 Assessment & Plan (04/26/2022 11:29 AM CDT): Preventive exam; reviewed recommended preventive screenings and vaccinations. Encourage annual flu vaccine. Wear sunscreen/protective clothing when outdoors. Looking forward to moving in with fiance. Plans to start exercise regimen with partner this fall. Moderate episode of recurrent major depressive d isorder 11/30/2021 Assessment & Plan (04/26/2022 11:28 AM CDT): Following with psychiatry, starting sertraline. Notes moods are well controlled. Denies feeling hopeless of having any SI. PHQ Screening PHQ-2 Total Score (If total score is 3 or more points, staff should administer the PHQ-9): 0 Will continue to monitor. Assessment & Plan (03/03/2022 12:24 PM CDT): Worsening 2/2 current living situation. No medication changes made today, recommended evaluation by psychiatry. Patient denies feeling hopeless or having any thoughts of self harm. Reviewed red flags. Assessment & Plan (11/30/2021 9:15 AM CDT): PHQ=2. Patient is stable on current dose of duloxetine 60 mg once daily. Encouraged her to engage in physical exercise and discussed the benefits of exercise healthy diet and sleep hygiene. Denies any thoughts of SI /HI. Will continue to monitor. Lipid screening 11/30/2021 Assessment & Plan (11/30/2021 9:19 AM CDT): Will check fasting labs and notify patient of results as soon as they are received. Class 2 obesity due to exces s calories without serious comorbidity with body mass index (BMI) of 37.0 to 37.9 in adult 11/30/2021 Assessment & Plan (04/26/2022 11:29 AM CDT): Discussed healthy diet and importance of regular physical activity. Patient and her fiance are planning to start diet and exercise program together. Assessment & Plan (03/03/2022 12:23 PM CDT): Discussed healthy diet and importance of regular physical activity. Assessment & Plan (11/30/2021 9:18 AM CDT): Discussed healthy diet and importance of regular physical activity. Paresthesia 07/10/2019 Assessment & Plan (07/10/2019 8:38 AM CDT): Reviewed normal head CT 02/2018. No head/neck/back Injury/trauma. No decrease in strength. 'traveling' paresthesia. Never same. No possible cause identified yet. Concerned w/lyme disease. Risk of exposure to Lyme disease 07/09/2019 Assessment & Plan (07/10/2019 10:23 AM CDT): Reports h/o large tick on her head that Dr Sellers removed in past. Feels like symptomology from that time on. Lyme labs ordered. Will contact w/results once rec'd. Reviewed negative MRI 02/21/18. Will reconsider repeat MRI imaging pending lyme test. Other insomnia 04/12/2019 Assessment & Plan (04/12/2019 12:47 PM CDT): Chronic condition, currently stable. Advised the patient to focus on sleep hygiene. The patient does not report any worsening sleep-related difficulties at this time. Supportive, insight-oriented counseling provided in the office today. No change to treatment regimen at this time. Not on any medications. RAMSEY (generalized anxiety disorder) 04/12/2019 Assessment & Plan (04/26/2022 11:28 AM CDT): Continues to have good response from prn use of hydroxyzine. Assessment & Plan (11/30/2021 9:15 AM CDT): Will add buspirone 5 mg twice daily. Reviewed medications scheduling and side effects. Again reviewed the importance of physical exercise and sleep hygiene. Follow-up in 12 weeks. Assessment & Plan (04/12/2019 12:48 PM CDT): Chronic, persistent symptoms of Generalized Anxiety Disorder including restlessness or feeling of feeling keyed up or on edge, being easily fatigued, difficulty concentrating or mind going blank, irritability, muscle tension, and sleep disturbance. The patient reports that the anxiety, worry, or physical symptoms cause clinically significant distress or impairment in social, occupational, or other important areas of functioning. Initiate the following medications: Prozac 10 mg daily-plan to titrate up to 20 mg at next appointment if tolerated Full informed consent provided by the patient to start Prozac the current medication (or medications). The patient verbalized an understanding of the reason for initiating/continuing including the diagnosis and target symptoms for the medication recommended, the possible benefits and/or intended outcome of treatment, and as applicable, all available procedures involved in the proposed treatment, the possible risks and side effects, (including risk of medications to women and women who are ), the possible alternatives and complementary treatments, the possible results of not taking the recommended medications, (including but not limited to worsening symptoms, psychiatric instability, and even ), the possibility that this medication dose and/or frequency may need to be adjusted over time in consultation with Dr. Reyes. The patient verbalized an understanding of the need for ongoing medical and psychiatric monitoring on an interval basis. At this time, the patient verbalizes full consent to initiate/continue and understands the benefits and risks and wishes to proceed with full, informed consent. - supportive, insight-oriented counseling provided in the office today. - the patient is not participating in therapy. Referred to therapist. Gluten intolerance 03/05/2019 Assessment & Plan (03/05/2019 2:01 PM CDT): Labs entered for testing. Will contact w/results once rec'd. Discussed diet: foods to avoid. MOP present at time of appt. Refused influenza vaccine 01/11/2019 Assessment & Plan (07/09/2019 2:50 PM CDT): Discussed and the patient refuses immunization today. Educated regarding the need to vaccinate for personal protection and to limit the viruses in the community to protect those most vulnerable. Assessment & Plan (01/11/2019 2:19 PM CDT): Strongly encouraged yearly influenza vaccines. Shortness of breath 09/08/2017 Palpitations 09/08/2017 Vertigo 09/05/2017 Syncope 09/05/2017 Resolved Problems Problem Noted Date Diagnosed Date Resolved Date Left foot pain 03/03/2022 04/26/2022 Assessment & Plan (03/03/2022 12:26 PM CDT): Discussed RICE and use of nsaids. Recommended inserts. Patient defers imaging today and would like to continue to monitor. Will follow up if pain continues. BMI 22.0-22.9, adult 01/11/2019 022 Assessment & Plan (07/09/2019 2:50 PM CDT): Discussed healthy diet and importance of regular physical activity. BMI is acceptable for this patient. Assessment & Plan (03/05/2019 1:53 PM CDT): Discussed healthy diet and importance of regular physical activity. Assessment & Plan (01/11/2019 2:19 PM CDT): BMI is acceptable for this patient. Acute CLYDE (middle ear effusion), left 01/11/2019 03/05/2019 Assessment & Plan (01/11/2019 2:20 PM CDT): To start sudafed to help w/head/nasal/ear congestion. No signs of AOM/AOE. Antihistamine for nasal drainage Tylenol/Motrin for fever/pain Muscle, jerky movements (uncontrolled) 07/19/2018 03/05/2019 Persistent depressive disorder 07/19/2018 11/30/2021 Assessment & Plan (04/12/2019 12:49 PM CDT): Moderate to severe - chronic, persistent symptoms including several of the following: depressed mood for most of the day, for more days than not, as indicated by either subjective account or observation by others for at least 2 years, and at least the presence, while depressed, of 2 or more of the following: poor appetite or overeating, insomnia or hypersomnia, low energy or fatigue, low self-esteem, poor concentration or difficulty making decisions, feelings of hopelessness. It is additionally noted that the patient has never been without the symptoms for more than 2 months at a time. Additionally, it is noted that there has never been a manic episode or a hypomanic episode, and criteria have never been met for cyclothymic disorder. The disturbance is not better explained by a persistent schizoaffective disorder, schizophrenia, delusional disorder, or other specified or unspecified schizophrenia spectrum and other psychotic disorder. The symptoms are not attributable to the physiological effects of a substance (e.g., a drug of abuse, a medication) or another medical condition (e.g., hypothyroidism). The patient does report that the symptoms cause clinically significant distress or impairment in social, occupational, or other important areas of functioning. The patient denies current suicidal ideation. The patient denies current homicidal ideation. The patient does not report any symptoms of psychosis, ladarius, or hypomania. Supportive, insight-oriented counseling provided in the office today I discussed the importance of lifestyle modification with the patient today. The patient will focus on lifestyle modification including changes to diet, incorporate regularly scheduled exercise, obtain sufficient sleep/maintaining proper sleep hygiene, and reduce overall level of stress. The patient will start the following medication (or medications): Prozac 10 mg daily Full informed consent provided by the patient to start the current medication. The patient verbalized an understanding of the reason for initiating Prozac including the diagnosis and target symptoms for the medication recommended, the possible benefits and/or intended outcome of treatment, and as applicable, all available procedures involved in the proposed treatment, the possible risks and side effects, [(including risk of medications to women and women who are )], the possible alternatives and complementary treatments, the possible results of not taking the recommended medications, (including but not limited to worsening symptoms, psychiatric instability, and even ), the possibility that this medication dose and/or frequency may need to be adjusted over time in consultation with Dr. Reyes. The patient verbalized an understanding of the need for ongoing medical and psychiatric monitoring on an interval basis. At this time, the patient verbalizes full consent to initiating this medication and understands the benefits and risks and wishes to proceed with full, informed consent. Assessment & Plan (03/05/2019 2:00 PM CDT): Improved & has been slowly tapering off of citalopram. Started taper 01/29/19 & denies any increase in anxiety or depression. Currently taking 5mg daily. Plan is to stop citalopram after Tuesday03/12/19 dose. Reviewed red flags. MOP here at appt w/Linn and both verbalize understanding. Hypoglycemia 07/11/2017 07/11/2017 Weight loss, unintentional 07/11/2017 0 01/11/2019 Orthostatic hypotension 07/11/201712/19 Occipital lymphadenopathy 05/06/2016 Overview (12/23/2016): Occipital lymphadenopathy Reflux nephropathy 11/22/2014 9 Overview (12/23/2016): Non-obstructive reflux-associated chronic pyelonephritis Immunizations Immunization Administration Dates Next Due DTaP 03/19/2004, 0,06/18/1999,04/15/1999,0 02/09/1999 Hep B, Adolescent or Pediatric 03/25/2000,1998,1998 IPV 03/19/2004,01/28/2000,04/15/1999 ,02/09/1999 Influenza, Unspecified 11/30/2021(Deferr ed: Patient Refused),06/19/2021(Deferred: Patient Refused),08/20/2020(Deferred: Patient Refused),07/09/2020(Deferred: Patient Refused),06/19/2020(Deferred: Patient Refused),09/19/2019(Deferred: Patient Refused),07/09/2019(Deferred: Patient Refused),07/09/2019(Deferred: Patient Refused),03/05/2019(Deferred: Patient Refused),01/11/2019(Deferred: Patient Refused),09/19/2018(Deferred: Patient Refused),09/19/2018(Deferred: Patient Refused),01/17/2018(Deferred: Patient Refused),11/28/2017(Deferred: Patient Refused),09/19/2017(Deferred: Patient Refused),09/19/2017(Deferred: Patient Refused) MMR 03/19/2004,01/28/2000 Meningococcal MCV4P (Menactra) 05/09/2015,2014,04/17/2010 Tdap 05/07/2020,04/17/2010 Varicella 04/17/2010,01/28/2000 Surgical History Surgery Date Site/Laterality Comments OTHER SURGICAL HISTORY Vesicoureteral reflux: surgical repair Medical History Medical History Date Comments Hx Other Medical 2009 Vesicoureteral reflux Hypoglycemia Vertigo TMJ (dislocation of temporom andibular joint) Reflux nephropathy 11/22/2014 Non-obstructi ve reflux-associated chronic pyelonephritis Orthostatic hypotension 07/11/2017 Occipital lymphadenopathy 05/06/2016 Occipi shahida lymphadenopathy Weight loss, unintentional 07/11/2017 Acute CLYDE (middle ear effusion), left 01/11/2019 Muscle, jerky movements (uncontrolled) 8 Headache Depression Class 2 obesity due to exces s calories without serious comorbidity with body mass index (BMI) of 36.0 to 36.9 in adult 11/30/2021 Family History Medical History Relation Name Comments Diabetes type II Father Diabetes me llitus type 2; Hypertension Father Hypertension; Other Father Lumbar spine di sease; Heart attack Maternal Grandfather Prostate cancer Maternal Grandfather Cerebral aneurysm Maternal Grandmother Relation Name Status Comments Brother 1 Joss Alive Brother 2 Tye Alive Father Alive Maternal Grandfather Alive Maternal Grandmother Mother Alive Paternal Grandfather Paternal Grandmother Social History Tobacco Use Types Packs/Day Years Used Date Smoking Tobacco: Never Smokeless Tobacco: Never Tobacco Cessation:Counseling Given: Not Answered Alcohol Use Standard Drinks/Week Comments No 0 (1 standard drink = 0.6 oz pur e alcohol) PHQ-2 Answer Date Recorded PHQ-2 Total Score (If total score is 3 or more points, staff should administer the PHQ-9) 0 04/26/2022 Comments No Sex and Gender Information Value Date Recorded Sex Assigned at Not on file Legal Sex Female 10:36 PM IMPORT CUSTOMER SERVICE MANAGER Gender Identity Not on file Sexual Orientation Not on file Obstetrics History Para Term AB IAB SAB Ectopic Multiple Livin g Live Births 0 0 0 0 0 0 0 0 0 0 0 Last Filed Vital Signs Vital Sign Reading Time Taken Comments Blood Pressure 114/70 07/24/2024 12:53 PM IMPORT CUSTOMER SERVICE MANAGER Pulse 67 05/08/2024 10:34 AM CDT Temperature 36.6 C (97.8 F) 09/15/2022 8:46 AM IMPORT CUSTOMER SERVICE MANAGER Respiratory Rate 14 09/15/2022 8:46 AM IMPORT CUSTOMER SERVICE MANAGER Oxygen Saturation 97% 05/08/2024 10: 34 AM CDT Inhaled Oxygen Concentration - - Weight 101.2 kg (223 lb 3.2 oz) 024 12:53 PM IMPORT CUSTOMER SERVICE MANAGER Height 165.1 cm (5' 5 ) 07/24/2024 12:5 3 PM IMPORT CUSTOMER SERVICE MANAGER Body Mass Index 37.14 07/24/2024 12:53 PM IMPORT CUSTOMER SERVICE MANAGER Plan of Treatment Health Maintenance Due Date Last Done Comments Cervical Cancer Screening 1998 Hepatitis C Screening 1998 HPV Vaccines (1 - 3-dose series) 2013 Depression Screening 04/26/2023 04/26/2022, 02/22/2022, 11/30/2021, Additional history exists Influenza Vaccine (Season Ended) 2025 Regular Well Visit/Exam 18-64 07/24/2025 07/24/2024, 04/26/2022 DTaP/Tdap/Td Vaccine (8 - Td or Tdap) 05/07/2030 05/07/2020, 04/17/2010, 03/19/2004, Additional history exists Hepatitis B Screening Completed 03/25/2000 , 04/15/1999, 1998 Varicella Vaccines Completed 04/17/2010, 01/28/2000 Pneumococcal vaccine <65 Aged Out No longer eligible based on patient's age to complete this topic Insurance [facility] HMO/PPO Address: [address] [address] [place] [address] * Guarantor: Linn Collins Account Type Relation to Patient Date of Phone Billing Address Personal/Family Self [address] [place] [id number] [place] [address] Member Subscriber Plan / Payer (Ef fective 2022-Present) Name:Linn Collins Relation to Subscriber:Spouse Name:KAYLEIGH COLLINS Date of :1998 Address: [address] [place] [id number] Payer ID:[id number] (NAIC) Type:CIGNA HMO/PPO Address: [address] [facility] [id number] [place] [id number] Care Teams Cryptographic Machine Operator Relationship Specialty Start Date End Date Harper Araujo NP [address] [place] [address] [place] [address] PCP - General Nurse Practitioner 05/08/24
--- OUTSIDE RECORDS SUMMARY | 2025-01-11 08:21 | XMS_ITS | Referral Summary ---
Author Organization [facility] Medical Office Building [address] Address [address] [place] [address] Care Team Providers Care Row Boss Name Role Phone Blessingrosi Harper SHABNAM Primary Care Provider [phone] Allergies Active Allergy Reactions Criticality Noted Date [...] MCV4P (Menactra) 05/09/2015,2014,04/17/2010 Tdap 05/07/2020,04/17/2010 Varicella 04/17/2010,01/28/2000 Social History Tobacco Use Types Packs/Day Years [...] on file Legal Sex Female 10:36 PM ATOMIC PROCESS ENGINEER Gender Identity Not on file Sexual Orientation Not on file Last Filed Vital Signs Vital Sign Reading Time Taken Comments Blood Pressure 114/70 07/24/2024 12:53 PM ATOMIC PROCESS ENGINEER Pulse 67 05/08/2024 10:34 AM CDT Temperature 36.6 C (97.8 F) 09/15/2022 8:46 AM ATOMIC PROCESS ENGINEER Respiratory Rate 14 09/15/2022 8:46 AM ATOMIC PROCESS ENGINEER Oxygen Saturation 97% 05/08/2024 10: 34 AM CDT Inhaled Oxygen Concentration - - Weight 101.2 kg (223 lb 3.2 oz) 024 12:53 PM ATOMIC PROCESS ENGINEER Height 165.1 cm (5' 5 ) 07/24/2024 12:5 3 PM ATOMIC PROCESS ENGINEER Body Mass Index 37.14 07/24/2024 12:53 PM ATOMIC PROCESS ENGINEER Plan of Treatment Not on file Insurance CIGNA [facility] [facility] [place] [address] [place] [address] [facility] Care Teams Row Boss Relationship Specialty Start Date End Date Harper Araujo NP [facility] [place] [address] PCP - General Nurse Practitioner 05/08/24
--- OUTSIDE RECORDS SUMMARY | 2025-01-11 08:21 | XMS_ITS | Clinical Summary ---
Author Organization [facility] Address [address] [place] [address] Phone Care Team Providers Care Datacap Developer Name Role Phone Harper Araujo APRN Primary Care Provider [phone] Allergies Active Allergy Reactions Criticality Noted Date Comments Amoxicillin Unknown 09/18/2023 Sulfamethoxazole-Trimethoprim Unknown 2022 Medications sertraline (ZOLOFT) 100 MG Tablet Take 100 mg by mouth daily. Active Topiramate (TOPAMAX PO) Take 50 mg by mouth as needed. Active Social History Tobacco Use Types Packs/Day Years Used Date Smoking Tobacco: Never Tobacco Cessation:Counseling Given: Not Answered Alcohol Use Standard Drinks/Week Comments Never 0 (1 standard drink = 0.6 oz pur e alcohol) Comments No Sex and Gender Information Value Date Recorded Sex Assigned at Not on file Legal Sex Female 9:20 PM STAKING ENGINEER Gender Identity Not on file Sexual Orientation Not on file Last Filed Vital Signs Vital Sign Reading Time Taken Comments Blood Pressure 119/73 09/18/2023 9:45 PM STAKING ENGINEER Pulse 76 09/18/2023 9:45 PM STAKING ENGINEER Temperature 36.8 C (98.3 F) 09/18/2023 9:38 PM STAKING ENGINEER Respiratory Rate 18 09/18/2023 9:38 PM STAKING ENGINEER Oxygen Saturation 98% 09/18/2023 9:45 PM STAKING ENGINEER Inhaled Oxygen Concentration - - Weight 99.8 kg (220 lb) 09/18/2023 9:38 PM STAKING ENGINEER Height 165.1 cm (5' 5 ) 09/18/2023 9:38 PM STAKING ENGINEER Body Mass Index 36.61 09/18/2023 9:38 PM STAKING ENGINEER Plan of Treatment Not on file Insurance NA [id number] Care Teams Datacap Developer Relationship Specialty Start Date End Date Harper Araujo APRN PCP - General Advanced Practice Nurse 09/18/23
--- OUTSIDE RECORDS SUMMARY | 2025-01-11 08:22 | XMS_ITS | Data Portability ---
Author Organization [facility] Address [address] [place] [address] [place] [address] Care Team Providers Care Child Attendant Name Role Phone ALFRED MALDONADO Primary Care Provider Assessment Encounter Date Assessment Date Assessment LastModified by Organization Details LastModified Time 08/31/2023 08/31/2023 Annual gynecological exam performed. Patient will come back in a year unless there are new symptoms. Not available 08/31/2023 15:02:11 Plan of Treatment Reminders Order Date Submit Date Provider Last Modified By Organization Details Last Modified Time Details Appointments None recorded. Lab None recorded. Referral None recorded. Procedures None recorded. Surgeries None recorded. Imaging US, transvagina l 2023 024 [email or web address] [address], [address], [place], [address], 18:19:43 US, transvagina l 2022 023 [email or web address] [address], [address], [place], [address], 3 10:28:40 US, pelvis, complete 2022 023 [email or web address] 1 [address], [address], [place], [address], 17:14:02 Medication Orders cyclobenzap rine 10 mg tablet 2023 024 NICOLÁS [facility] [address], [address], 4 14:46:22 metronidazo le 500 mg tablet 2021 022 [facility] [address], [address], 3 15:11:41 Patient TargetsNo targets recorded. Patient InstructionsNo instructions recorded. Reason for Referral None Reported. Results Created Date Observation Date Name Description Value Unit Range Abnormal Flag Note LastModifiedBy Organization Detail LastModifiedTime 08/20/20 22 08/20/2022 MOBIL UNCUS MULIE RIS/C URTIS TON, RT-PC R, ONE SWAB nm bkr mobiluncus mulieris and mobiluncus curtisii by RT-PCR Negati ve Swab- 1 Vag/C erv Not Available [facility] (Lab) [address] [place], [address], 08/25/2022 15:02:45 08/20/20 22 08/20/2022 UROGE NITAL MYCOP LASMA /UREA PLASM A PANEL RT-PC R, ONESW AB nm bkr mycoplasma genitalium by RT-PCR Negati ve Swab- 1 Vag/C erv Not Available [facility] (Lab) [address] [place], [address], 08/25/2022 15:02:46 08/20/20 22 08/20/2022 UROGE NITAL MYCOP LASMA /UREA PLASM A PANEL RT-PC R, ONESW AB nm bkr mycoplasma hominis by RT-PCR Negati ve Swab- 1 Vag/C erv Not Available [facility] (Lab) [address] [place], [address], 08/25/2022 15:02:46 08/20/20 22 08/20/2022 UROGE NITAL MYCOP LASMA /UREA PLASM A PANEL RT-PC R, ONESW AB nm bkr ureaplasma urealyticum by RT-PCR Negati ve Swab- 1 Vag/C erv Not Available [facility] (Lab) [address] [place], [address], 08/25/2022 15:02:46 08/20/20 22 08/20/2022 TANYA DA VAGIN ITIS PANEL RT-PC R, ONESW AB shanice albicans PCR Negati ve Swab- 1 Vag/C erv Not Available [facility] (Lab) [address] [facility], [place], [address], 08/25/2022 15:02:47 08/20/20 22 08/20/2022 TANYA DA VAGIN ITIS PANEL RT-PC R, ONESW AB shanice tropicalis PCR Negati ve Swab- 1 Vag/C erv Not Available [facility] (Lab) [address] [facility], [place], [address], 08/25/2022 15:02:47 08/20/20 22 08/20/2022 TANYA DA VAGIN ITIS PANEL RT-PC R, ONESW AB shanice parapsilosis PCR Negati ve Swab- 1 Vag/C erv Not Available [facility] (Lab) [address] [place], [address], 08/25/2022 15:02:47 08/20/20 22 08/20/2022 TANYA DA VAGIN ITIS PANEL RT-PC R, ONESW AB shanice glabrata PCR Negati ve Swab- 1 Vag/C erv Not Available [facility] (Lab) [address] [place], [address], 08/25/2022 15:02:47 08/20/20 22 08/20/2022 TANYA DA SONYA I BY RT-PC R shanice krusei by RT-PCR Negati ve Swab- 1 Vag/C erv Not Available [facility] (Lab) [address] [facility], [place], [address], 08/25/2022 15:02:47 08/20/20 22 08/20/2022 BACTE RIAL VAGIN OSIS PANEL RT-PC R, ONESW AB gardnerella vaginalis PCR Negati ve Swab- 1 Vag/C erv Not Available [facility] (Lab) [address] [place], [address], 08/25/2022 15:02:48 08/20/20 22 08/20/2022 BACTE RIAL VAGIN OSIS PANEL RT-PC R, ONESW AB atopobium vaginae PCR Negati ve Swab- 1 Vag/C erv Not Available [facility] (Lab) [address] [facility], [place], [address], 08/25/2022 15:02:48 08/20/20 22 08/20/2022 BACTE RIAL VAGIN OSIS PANEL RT-PC R, ONESW AB bacterial vaginosis associated bacteria 2 (bvab2) Negati ve Swab- 1 Vag/C erv Not Available [facility] (Lab) [address] [place], [address], 08/25/2022 15:02:48 08/20/20 22 08/20/2022 BACTE RIAL VAGIN OSIS PANEL RT-PC R, ONESW AB megasphaera species (type 1 and type 2) PCR Negati ve (Type1 ,Type2 ) Swab- 1 Vag/C erv Type1 :Nega tive Type2 :Nega tive. Not Available [facility] (Lab) [address] [place], [address], 08/25/2022 15:02:48 08/20/20 22 08/20/2022 BACTE RIAL VAGIN OSIS PANEL RT-PC R, ONESW AB lactobacillu s (bvpanel) PCR See Commen t Swab- 1 Vag/C erv L.cri spatu s: Posit anand L.swetha senii : Negat anand L.gas seri : Posit aannd L.ine rs : Negat anand. Not Available [facility] (Lab) [address] [place], [address], 08/25/2022 15:02:48 08/31/20 23 08/31/2023 VAGIN ITIS/ VAGIN OSIS, DNA PROBE shanice sp. detection, direct probe Negati ve negati ve Not Available [facility] (Lab) [address] [place], [address], 09/03/2023 14:29:13 08/31/20 23 08/31/2023 VAGIN ITIS/ VAGIN OSIS, DNA PROBE gardnerella vag. detection, direct probe Negati ve negati ve Not Available [facility] (Lab) [address] [place], [address], 09/03/2023 14:29:13 08/31/20 23 08/31/2023 VAGIN ITIS/ VAGIN OSIS, DNA PROBE trichomonas vag. detection, direct probe Negati ve negati ve Not Available [facility] (Lab) [address] [place], [address], 09/03/2023 14:29:13 08/31/20 23 08/31/2023 IMAGE GUIDE D PAP, REFLE X HPV IF ASCUS ONLY image guided Pap, reflex HPV ASCUS only SEE RESULT S BELOW CASE REPOR T: Cytol ogy Gynec ologi lisa Repor t Case: [id number] Autho tata g Provi erum: Kirstin Lanier NP Colle cted: 08/31 1505 Order ing Locat ion: [place] Path[facility] Recei thais: 09/01 0738 First Scree n: Mariel Swanson ret, CT Speci men: Scree rashard Pap - Image d, Cervi x STATE MENT OF ADEQU ACY: Satis facto ry for evalu ation Trans forma tion zone compo nent prese nt FINAL DIAGN OSIS: Negat anand for Intra epith elial Lesio n or Latonia blount (NIL) . Elect parvin roth art d by Mariel Swanson ret, CT on 09/03 at 1:26 PM ----- ----- ----- ----- ----- ----- ----- ----- ----- ----- ----- ----- ----- ----- ----- ----- ----- ---- COMME NT: This speci men was revie wed by a Cytot echno logis t and/o r Patho logis t (as indic ated in this repor t) after evalu ation using the Thinp rep Imagi ng Syste m. CLINI LISA INFOR MATIO N: Menst rual Statu s: LMP (if appli cable ): Clini lisa Histo ry/Pr eviou s Pap: Type of Neopl debby (if appli cable ): Signi fican t Clini lisa Findi ngs: Other Histo ry: Hormo susie (if appli cable ): PAP EDUCA DAVID L NOTE: The Pap Test is a scree rashard test with an inher ent false negat anand rate. Liqui d-bas ed sampl ing may decre ase, but will not elimi sakshi, false negat anand resul ts. A negat anand resul t does not precl ude the prese nce and/o r devel opmen t of disea se, since the prese nce of abnor mal cells in the sampl e depen ds on the locat ion of the lesio n and sampl ing techn ique. Sachi nued regul ar scree rashard is the best metho d of cance r preve ntion . If repor kurtis cytol ogic findi ng do not corre late with physi lisa and/o r histo rical findi ngs, furth er inves tigat ion is recom brandon d, as clini jacquie wren nted. Not Available [facility] (Lab) [address], [place], [address], 09/03/2023 14:29:14 09/05/20 23 09/05/2023 US, trans vagin al No observ ation record ed. [email or web address] [place] [address], [place], [address], 09/05/2023 16:14:08 09/05/20 23 09/05/2023 US, trans vagin al No observ ation record ed. [address], [place], [address], 09/08/2023 11:13:45 10/26/19 24 10/26/2023 US, trans vagin al No observ ation record ed. [email or web address] [place] [address], [place], [address], 10/26/2023 18:21:20 10/26/19 24 10/26/2023 US, trans vagin al No observ ation record ed. NICOLÁS [address], [place], [address], 10/31/2023 15:43:44 Result Notes None recorded. Procedures Surgical History Date Name Laterality Status Provider Name and Address Organization Details Recorded Time 10/30/19 22 Date of Last Pap Smear completed Rika House [facility] 10/30/2021 16:29:23 02/24/20 21 IUD Insertion completed Aster Dunn SHAB[facility]- [address], [place], [address], [place] [facility] 02/23/2021 13:33:22 09/19/19 09 procedure on urinary bladder completed Rika House [facility] 09/03/2020 10:46:59 09/19/19 09 cystoscopic anastomosis of ureter to urinary bladder with insertion of stent into ureter completed Rika House [facility] 09/03/2020 10:48:54 09/19/19 09 removal of stent completed Rika House [facility] 09/03/2020 10:49:25 Imaging Results Imaging Date Name Status LastModified by Organization Details LastModified Time 09/05/2023 US, transvaginal completed [email or web address] [place] [address], [place], [address], 09/05/2023 16:14:08 09/05/2023 US, transvaginal completed [address], [place], [address], 09/08/2023 11:13:45 10/26/2023 US, transvaginal completed [email or web address] [place] [address], [place], [address], 10/26/2023 18:21:20 10/26/2023 US, transvaginal completed NICOLÁS [address], [place], [address], 10/31/2023 15:43:44 Procedure Notes None recorded. Medical Equipment None Reported. Allergies Allergen ID Allergen Name Allergen Category Reaction Reaction Severity Criticality Documentation Date Start Date Code Code System Note Provider Name and Address Organization Details Recorded Time 64742 ethinyl estradiol / norethind william medicatio n Not available Not available Not available 10/22/2020 32499 0 RxNorm Radha lin [facility] 12:11:24 38495 Substance with sulfonami de structure and antibacte rial mechanism of action (substanc e) medicatio n Not available Not available Not available 03/31/2021 11907 8003 SNOMED Love lin, [facility] 13:00:09 63988 metronida zole medicatio n Not available Not available Not available 08/31/2023 6922 RxNorm [facility] [place] [address], [place], [address], [facility] 3 14:33:01 2586 amoxicill in medicatio n Not available Not available Not available 07/22/2020 723 RxNorm Sujata lin [facility] 0 12:48:34 2587 trimethop rim medicatio n Not available Not available Not available 07/22/2020 12802 RxNorm Love Allison [facility], [facility] 1 13:00:13 2588 Keppra medicatio n Not available Not available Not available 07/22/2020 24805 7 RxNorm Sujata Fofana [facility], [facility] 0 12:48:59 2987 Bactrim medicatio n Not available Not available Not available 09/03/2020 91342 [address] RxNorm [address] [facility] 0 10:45:47 Medications Name Sig Start Date Stop Date Status Note LastModified by Organization Details LastModified Time cyclobenzap rine 10 mg tablet TAKE 1 TABLET 3 TIMES A DAY BY ORAL ROUTE NEEDED. active Not Available Not Available No t Available Mirena 21 mcg/24 hr (up to 8 years) 52 mg intrauterin e device Take by intrauter ine route. 2020 active Not Available Not Available Not Avai lable buspirone 5 mg tablet TAKE 1 TABLET BY MOUTH THREE TIMES A DAY 08/20 completed Not Available Not Available Not Available doxycycline hyclate 100 mg capsule TAKE 1 CAPSULE BY MOUTH TWICE A DAY FOR 10 DAYS 07/22 completed Not Available Not Available Not Available trazodone 50 mg tablet TAKE 1/2 TO 1 TABLET BY MOUTH AT BEDTIME NEEDED 08/20 completed Not Available Not Available Not Available nystatin 100,000 unit/gram topical ointment Apply to affected area(s) by topical route 2 times per day 10/30 completed Not Available Not Available Not Available fluconazole 150 mg tablet TAKE 1 TABLET BY ORAL ROUTE DAILY FOR 2 DAYS. 08/17 completed Not Available Not Available Not Available sertraline 100 mg tablet TAKE 1 TABLET BY MOUTH EVERY DAY active Not Available Not Available No t Available topiramate 25 mg tablet TAKE 1 TAB BY MOUTH DAILY FOR 7 DAYS THEN INCREASE TO 2 TABLETS DAILY 08/31 completed Not Available Not Available Not Available metronidazo le 500 mg tablet TAKE 1 TABLET BY MOUTH EVERY 12 HOURS 08/31 completed Not Available Not Available Not Available ciprofloxac in 500 mg tablet 08/31 completed Not Available Not Available Not Available nystatin-tr iamcinolone 100,000 unit/gram-0 .1 % topical ointment APPLY TO THE AFFECTED AREA(S) BY TOPICAL ROUTE 2 TIMES PER DAY 2021 active Not Available Not Available Not Avai lable trazodone 150 mg tablet TAKE 1 TABLET BY MOUTH EVERY DAY AT BEDTIME NEEDED FOR 30 DAYS 08/20 completed Not Available Not Available Not Available triamcinolo ne acetonide 0.1 % topical ointment APPLY A THIN LAYER TO THE AFFECTED AREA(S) BY TOPICAL ROUTE 2 TIMES PER DAY 10/30 completed Not Available Not Available Not Available fluoxetine 10 mg capsule TAKE ONE CAPSULE BY MOUTH EVERY DAY 07/22 completed Not Available Not Available Not Available sertraline 25 mg tablet TAKE 1 TABLET DAILY FOR 7 DAYS THEN 2 TABLETS DAILY FOR 7 DAYS 08/20 completed Not Available Not Available Not Available hydroxyzine HCl 25 mg tablet TAKE 1 TABLET BY MOUTH TWICE A DAY NEEDED FOR ANXIETY active Not Available Not Available No t Available methylpredn isolone 4 mg tablets in a dose pack TAKE 6 TABLETS ON DAY 1 DIRECTED ON PACKAGE AND DECREASE BY 1 TAB EACH DAY FOR A TOTAL OF 6 DAYS 10/02 completed Not Available Not Available Not Available cefdinir 300 mg capsule TAKE 1 CAPSULE BY MOUTH EVERY 12 HOURS FOR 10 DAYS 08/31 completed Not Available Not Available Not Available doxycycline hyclate 100 mg tablet TAKE 1 TABLET BY MOUTH TWICE A DAY FOR 10 DAYS 08/31 completed Not Available Not Available Not Available bupropion HCl XL 300 mg 24 hr tablet, extended release TAKE 1 TABLET BY MOUTH EVERY DAY IN THE MORNING - MUST SCHEDULE APPOINTME NT 08/31 completed Not Available Not Available Not Available bupropion HCl XL 150 mg 24 hr tablet, extended release TAKE 1 TABLET BY MOUTH EVERY DAY IN THE MORNING 08/20 completed Not Available Not Available Not Available June FE 10/08 (28) 1 mg-20 mcg (21)/75 mg (7) tablet TAKE 1 TABLET BY MOUTH EVERY DAY 10/22 completed Not Available Not Available Not Available topiramate 50 mg tablet TAKE 1 TABLET BY MOUTH EVERY DAY active Not Available Not Available No t Available nitrofurant oin monohydrate /macrocryst als 100 mg capsule 100 MG ORALLY EVERY 12 HOURS FOR 5 DAYS MUST ADMINISTE R WITH A MEAL/FOOD active Not Available Not Available No t Available duloxetine 30 mg capsule,del ayed release TAKE 1 CAPSULE BY MOUTH EVERY DAY FOR 14 DAYS 08/20 completed Not Available Not Available Not Available duloxetine 60 mg capsule,del ayed release TAKE 1 CAPSULE BY MOUTH EVERY DAY 08/20 completed Not Available Not Available Not Available duloxetine 07/22 completed Not Available Not Available Not Available Slynd 4 mg (28) tablet TAKE 1 TABLET BY MOUTH EVERY DAY 02/23 completed Not Available Not Available Not Available Slynd 01/15 completed Not Available Not Available Not Available Vitals Date Recorded Body height Body mass index (BMI) Body weight Systolic blood pressure Diastolic blood pressure Provider Name and Address Organization Details Last Updated DateTime 08/20/2022 167.64 cm 33.4 kg/m2 39540.62 g 129 mm[Hg] 85 mm[Hg] Miesha Chan [facility] 09:07:28 Date Recorded Body weight Systolic blood pressure Diastolic blood pressure Provider Name and Address Organization Details Last Updated DateTime 08/31/2023 037379.51 g 114 mm[Hg] 73 mm[Hg] [facility] 08/31/2023 15:10:14 Date Recorded Body weight Systolic blood pressure Diastolic blood pressure Provider Name and Address Organization Details Last Updated DateTime 12/12/2023 895852.51 g 110 mm[Hg] 75 mm[Hg] [facility] 12/12/2023 10:08:53 Social History Question Answer Notes LastModified by Organizat ion Details LastModified Time Tobacco Smoking Status Never Smoker Sujata Fofana [facility] 07/22/2020 12:51:13 What Is Your Level Of Alcohol Consumption? None Information not available 08/31/2023 If You Are , What Was Your Level Of Alcohol Consumption Prior To ? None [email or web address] Information not available 10/02/2021 Are You Blind Or Do You Have Difficulty Seeing? No Information not available 02/23/2021 What Is Your Level Of Caffeine Consumption? Moderate Information not available 02/23/2021 In The 14 Days Before Symptom Onset, Have You Had Close Contact With A Laboratory-confir med COVID-19 While That Case Was Ill? No [email or web address] Information not available 10/02/2021 In The 14 Days Before Symptom Onset, Have You Had Close Contact With A Person Who Is Under Investigation For COVID-19 While That Person Was Ill? No [email or web address] Information not available 10/02/2021 Have You Been To An Area Known To Be High Risk For COVID-19? No Information not available 10/02/2021 Are You Deaf Or Do You Have Serious Difficulty Hearing? No Information not available 02/23/2021 What Type Of Diet Are You Following? REGULAR Information not available 02/23/2021 Do You Or Have You Ever Used E-cigarettes Or Vape? Never Used Electronic Cigarettes Information not available 09/03/2020 What Was The Date Of Your Most Recent Tobacco Screening? 10/30/2021 [email or web address] Information not available 10/30/2021 Do You Use Your Seat Belt Or Car Seat Routinely? Yes Information not available 02/23/2021 Are You Sexually Active? Yes Information not available 02/23/2021 Do You Have Smoke And Carbon Monoxide Detectors In Your Home? Yes Information not available 02/23/2021 Do You Or Have You Ever Used Smokeless Tobacco? Never Used Smokeless Tobacco Information not available 09/03/2020 How Much Tobacco Do You Smoke? No Information not available 09/03/2020 Do You Feel Stressed (tense, Restless, Nervous, Or Anxious, Or Unable To Sleep At Night)? [id number] Information not available 02/23/2021 Do You Use Any Illicit Or Recreational Drugs? No Information not available 02/23/2021 Do You Use Sunscreen Routinely? Yes Information not available 02/23/2021 Sex: Unknown Functional Status Question Answer Note LastModified by Organizat ion Details LastModified Time Do you have difficulty walking or climbing stairs? No [email or web address] Information not available 10/30/2021 Are you able to walk? [email or web address] Information not available 02/23/2021 Are you able to care for yourself? Yes [email or web address] Information not available 10/30/2021 What is your exercise level? Occasional [email or web address] Information not available 07/22/2020 Mental Status None recorded. Family History Relationship Description Onset Age of this Age Resolved Age Notes LastModified by Organization Details LastModified Time Father Heart disease AFIB [email or web address] Not available 2019 12:50:42 Father Diabetes mellitus Type 2 [email or web address] Not available 2019 12:51:05 Maternal Grandfather Heart disease [email or web address] Not available 2019 12:50:42 Medical History Condition Response Allergies (Food, seasonal, environmental ) N Other Y Blood Transfusion N Drug/Latex Allergies/Reactions Y Breast Cancer N Dermatologic Disorders N Lung Disease N Defects or Inherited Disease N Breast Problem N Gestational Diabetes N Hematologic disorders N Anesthesia Complications N History of STI N Deep Vein Thrombosis N Polycystic ovary syndrome N Anxiety Disorder Y Autoimmune disease N Arthritis N Infertility N Polyps N Acid Reflux (GERD) N History of abnormal pap N Cancer N Stroke N Varicosities N Neurologic/Epilepsy N Endometriosis N High Cholesterol N Headaches N Fibromyalgia N Kidney Disease N Heart Problems N Kidney or Bladder Problems Y Thyroid Problems N GI Problems N Eating Disorder N Anemia N Art (IVF or FET) N Psychiatric Illness N Ovarian Cancer N Diabetes N Pulmonary (TB, Asthma) N Hepatitis/Liver Disease N No Past Medical History N Eczema N Urinary Tract Infection N Abuse/Domestic Violence N Asthma N Trauma/Violence N Depression/ depression Y Heart Disease N Pre-Eclampsia N Hypertension N Osteoporosis N Thrombophilias N Gynecological History Statement/Question Response Abnormal Pap N Flow Moderate Date of LMP 10/02/2021 STIs/STDs N HPV Vaccine N Duration of Flow (days) 4 14 Current Control Method IUD Sexually Active? Y Menses Monthly Y Age of first menstrual cycle 12 Date of Last Pap Smear 10/30/2021 Sexual Problems? N Desired Control Method LMP Approximate Obstetrics History GPAL:G 0 P 0 0 0 0 Type Value Living 0 Total 0 Past Encounters Encounter ID Performer Location Encounter Start Date Encounter Closed Date Diagnosis/Indication Diagnosis SNOMED-CT Code Diagnosis ICD10 Code Diagnosis Note [id number] Celsa Solomon [address] [place] [id number] 07/22/2020 12:27:28 07/22/2020 15:37:18 Abnormal uterine bleeding [id number] 9100 N93.9 We have discussed causes of abnormal/i rregular bleeding. Discussed importance of shedding uterine lining at minimum every 3 months if not on something that would cause amenorrhea . Pt would like to start ocp to regulate cycle and decrease cramping. I would like to check labs first and then have her start the ocp the Tuesday following the start of her cycle if labs are normal. Will plan wwe with med check in 3 months. Vaginitis [id number] N76.0 Discussed use of mild soap like dove or ivory, cotton underwear w/out dye, hypoallerg enic detergent, wipe from front to back, avoid tub baths, keep perineum clean and dry, d/c use of baby wipes. Encouraged daily intake of yogurt or womens health probiotic. Internal and external affirm collected. Pt has also agreed to STD screening. [id number] [facility] [address] [address] 09/03/2020 10:15:14 09/03/2020 11:39:16 Contraception care management [id number] Z30.9 [id number] [facility] [address] [address] 10/22/2020 12:04:46 10/23/2020 13:06:18 Gynecologic examination 68125084 Z01.419 Take Calcium with Vitamin D 1200mg daily if not receiving in daily diet. It is strongly advised to have an annual flu shot and up can obtain at most pharmacies . If you have not had a TDap shot in the last 10 years you should obtain one as well. Discussed with patient & provided with informatio n regarding Gardisil vaccine to prevent the 4 strains for HPV that cause cervical cancer if under age 26. Encourage safe sexual practices, to use condoms and limit partners if not already in a monogamous relationsh ip. Do monthly self breast exams. Have mammogram yearly or every other year depending on family history. BRCA testing is now available for patients with strong genetic history of female cancer. If interested contact the office. Engage in daily exercise of low impact aerobic exercise 45-60 minutes 4-5 times weekly. Avoid tobacco and illicit drugs as well as using moderation with alcohol intake less than 1-2 8 oz beverages daily. This lifestyle behavior pattern will lead to less health conditions and longer life span. If BMI greater than 25 weight watchers or dietary consult advised. Patient received above instructio ns, and questions have been answered. If you have any questions please call or respond to this email. Patient was made aware of the patient portal and may obtain a paper copy of today's plan if desired. Contracept ion care management [id number] Z30.9 happy on Slynd no issues RF sent [id number] Aster Dunn [facility] [address] [address] 01/15/2021 11:27:01 01/15/2021 16:41:20 Contraception care management [id number] Z30.9 Discussed all control options and pt would like mirena IUD. I have discussed in detail all risks and benefits including risk of infection and perforatio n. She understand s she will need to contact office with next menses or may abstain, complete serum HCG day before placement, if neg can have IUD placed next day. Aware of need to verify with insurance device coverage. Literature given. All questions answered to patient satisfacti on. She has decided to stop SLYND and will return to office with next menses. Hand outs given. Time spent in visit is a total of 26 mins with at least 50% of visit consisting of counseling and review of plan of care. Additional precaution shania measures were taken to minimize potential exposure to the Covid-19 virus during this patient s visit, including available hand video editor upon arrive, tempermananur e check and being asked a series of screening questions. All staff wore face coverings during this encounter, as well as provided additional cleaning and sanitizing of all surfaces, including countertop s, pens, chairs, door handles, light switches, etc, prior to and following the patient s visit. [id number] Aster Dunn [facility] [address] [address] 02/23/2021 12:34:44 02/23/2021 13:49:57 Screening procedure [id number] Z13.9 Insertion of intrauterine contraceptive device [id number] Z30.430 She has been counseled on all of the r/b/a of placement of an intrauteri ne device that include but are not limited to uterine perforatio n, injury to cervix, vagina, bladder, and bowel.Risk s of bleeding due to injury or increased irregular bleeding due to progestin effect of the device. Risks of infection would be increased within the first 21 days of placement with concommita nt cervicitis . She understand s that the device will need to be removed in this instance due to increased risk of Pelvic inflammato ry disease. Patient is aware she is at higher risk for STD and if contracted she could lose her fertility. Pt is aware that if occurs that she should contact office immediatel y to rule out ectopic which could be life threatenin g. IUD will also need to be removed and this could cause miscarriag e. Patient also informed that in the event her strings are absent or embedded at the time of removal she may need to have the IUD surgically removed. She was informed of the above and properly consented. IUD placed w/o complicati on. Patient should return to office after next period to check for string placement. Patient to expect irregular bleeding but should be seen in the ED if bleeding increases to soaking a pad an hour for at least 2 hours. She verbalized understand ing. RTO x 4-6wks string check Ibuprofen 600mg q8hrs for first 24hr after placement then prn use. Our goal with IUD placement is amenorrhea to help her significan t Dysmenorrh ea that disrupts her quality of life. Note: Was tearful today. Her mother was greatly opposed to having IUD placed voicing to patient that her cousin got cervical cancer from having IUD. No physical harm from mother but relationsh ip is strained since she is living at home & going to school; but no boundaries in regards to her being over 18yo which we discussed. We again reviewed IUD. I welcomed her to bring her mother with her if she wanted too and thought this would help to clarify some misconcept ions or misinforma tion; but this is patients choice as she is >18yo. She appreciate s the offer & chooses to move forwards with IUD placment today. She has very supportive friends and boyfriend in case she needs to talk or even a place to go to give her mom a break until they can discuss as adults. Call for help 911 if she really feels physically /mentally/ emotionall y threatened . Understand ing verbalized . [id number] Aster Dunn [facility] [address],[place] [address] 03/31/2021 12:09:45 03/31/2021 13:23:06 Intrauterine device check [id number] Z30.431 Patient is here for IUD string check. She is doing well. No irregular bleeding, cramping, d/c, vag odor, itching. No pain. No changes in appetite, mood, sleeping patterns. Wishes to continue this method. Time spent in visit is a total of 15 mins with at least 50% of visit consisting of counseling and review of plan of care. Additional precaution shania measures were taken to minimize potential exposure to the Covid-19 virus during this patient s visit, including available hand video editor upon arrive, temperatur e check and being asked a series of screening questions. All staff wore face coverings during this encounter, as well as provided additional cleaning and sanitizing of all surfaces, including countertop s, pens, chairs, door handles, light switches, etc, prior to and following the patient s visit. [id number] Courtney Abdullahi CNM [place] [address],[place] [address] 10/02/2021 14:54:28 10/02/2021 15:35:53 Vaginitis 34361519 N76.0 [id number] Courtney Abdullah[address] [facility] [address],[place] [address] 10/30/2021 16:16:32 11/03/2021 17:38:51 Vaginitis 39601795 N76.0 [id number] Courtney Abdullahi [facility] [address],[place] [address] 08/20/2022 09:01:55 08/20/2022 10:14:40 Vaginitis 12899668 N76.0 vulvar care handout given extended panel collected and sent f/u wwe [id number] Kirstin LanierCINDA [place] [address] [address] 08/31/2023 14:53:13 08/31/2023 15:50:05 Gynecologic examination [id number] Z01.419 [facility] - Mirena IUD, inserted 02/23/2021 - will 02/23/2029no n-visualiz ed IUD strings today - pelvic u/s ordered for IUD checkpap updatedSTI testing declinedHP V vaccine informatio n provideden couraged annual exam with PCP Take Calcium with Vitamin D daily if not receiving in daily diet.It is strongly advised to have an annual flu shot and up can obtain at most pharmacies . If you have not had a TDap shot in the last 10 years you should obtain one as well.Discu ssed with patient & provided with informatio n regarding Gardisil vaccine to prevent the 4 strains for HPV that cause cervical cancer if under age 26.Encoura ge safe sexual practices, to use condoms and limit partners if not already in a monogamous relationsh ip.Do monthly self breast exams. Engage in daily exercise of low impact aerobic exercise 45-60 minutes 4-5 times weekly. Avoid tobacco and illicit drugs as well as using moderation with alcohol intake less than 1-2 8 oz beverages daily. This lifestyle behavior pattern will lead to less health conditions and longer life span. If BMI greater than 25 weight watchers or dietary consult advised.Alcides benavidez received above instructio ns, and questions have been answered. If you have any questions please call or respond to this email.Mely aranda was made aware of the patient portal and may obtain a paper copy of today's plan if desired. Vaginal discharge [id number] 006 N89.8 vaginitis panel sentdeclin ed need for STI testingvul piyush care guidelines discussedw ill update w/ results when available IUD check [id number] Z30. 431 [id number] Susie Allison [place] [address] [address] 09/05/2023 14:42:12 09/05/2023 15:45:33 Mechanical complication of intrauterine contraceptive device [id number] T83.39XA [id number] Yarelis Zavaleta [place] [address] [address] 10/26/2023 17:02:04 10/26/2023 17:27:18 Cyst of right ovary [id number] N83.201 R10.2 [id number] SHERRIE SYED MD [place] [address] [address] 12/12/2023 10:01:58 12/12/2023 14:46:39 Pain in pelvis [id number] R10.2 - right sided x 2-3 weeks, no evident inciting events- no change in BM, fevers, chills; no radiation- exam significan t for R sided abdominal tenderness , no guarding or rebound- Previous pelvic US in 10/2023 demonstrat ed 7mm hyperechoi c focus on R ovary; discussed that this is unlikely cause of pain given small size and stability from prior ultrasound - ddx: GI vs MSK, less likely LAWN TECHNICIAN etiology given recent ultrasound - will trial flexeril, continue ibuprofen and heat for symptomati c relief- if pain continues after this course, recommend updating pelvic US to reevaluate R ovary Health Concerns Section Related Observation LastModified by Organization Detai ls LastModified Time None Recorded Concern Status LastModified by Organization Details LastModified Time None Recorded Advance Directives Directive None Recorded Payers Encounter Date Sequence Insurance Name Policy Number Policy Nicholson Covered Member ID Nicholson Member ID Guarantor Name 08/20/2022 1 [facility] [id number] Linn Macias [id number] Linn Mosher 08/31/2023 1 [employer] [id number] Andre Mosher [id number] Linn Mosher 09/05/2023 1 [employer]PP[employer]) [id number] Andre Mosher [id number] Linn Mosher 10/26/2023 1 [employer] (PPO) [id number] Andre Mosher [id number] Linn Nomi 12/12/2023 1 [employer]PP[employer]) [id number] Andre Mosher [id number] Linn Mosher Notes Date Note Type Note Provider Name and Address Organization Details Recorded Time 08/20/2022 text/html hx bv, cultures per pt usually negative complaints today of odor and yellow/green d/c, usually takes a pill and sxs resolve but come back, declines std panel Courtney Abdullahi CNM [address], [place], [address], [facility] 08/20/2022 09:20:19 08/31/2023 text/html Annual GYNReport ed bypatient.Menstrua l cycle:Normal menses Urinary symptoms:No hematuria; No incontinence Vulva:No genital lesion Vagina:White; large amount of vaginal discharge, slight odor no itching/irritation /or pelvic pain Breast:No breast pain; No breast lump; No nipple discharge Current Contraception:Sati sfied with current contraception; Intrauterine device (iud); mirena IUD, inserted 02/23/2021 Sexual complaints:No sexual complaints; No pain during intercourse; Normal libido Menopausal Symptoms:No menopausal symptoms; Normal vaginal lubrication Psychological symptoms:No depression; No anxiety; No PMDD Preventive measures:Encourage self breast examination; Encourage regular exercise; Encourage no tobacco use; Encourage regular mammograms starting age 40Notes:no hx of abnormal papslast pap 10/2020 - normalMirena IUD for BC, happy with this method has not had the HPV vaccine CINDA [place] [address], [place], [address], [facility] 08/31/2023 15:42:38 12/12/2023 text/html Presents to discuss pelvic pain. Reports right sided pelvic pain. Pain started 2-3 weeks ago. No inciting events. No change in bowel movement. No fevers or chills. No radiation of pain. Has tried ibuprofen and heat, which helped for a while. Mirena in place, light spotting at end of the month. Walking worsens pain, sexually active but not since pain started. SHERRIE SYED MD [address], [place], [address], [facility] 12/12/2023 14:46:34 OBGyn Episode No OBEpisode recorded.
[2025-01-11 08:47] LABS: BEDSIDEPREGUCG Negative (Negative); EDUAAPPEAR Cloudy; EDUABILI Negative (Negative); EDUABLOOD Trace (Negative); EDUACOLOR1 Tea Colored; EDUAGLUCOSE Negative (Negative); EDUAKETONE Negative (Negative); EDUALEUKO 3+ (Negative); EDUANITRATE Negative (Negative); EDUAPROTEIN Trace (Negative); EDUAUROBILI 0.2
== END 2025-01-11 08:58 | disposition home or self-care (01) ==
PROVIDERS: Emergency Provider Nurse Practitioner Family; PCP Nurse Practitioner Adult Health
DX: N30.01 Acute cystitis with hematuria (principal)
CPT/HCPCS: 74018; 81003; 81025; 87086; 99213; G0463

== ENCOUNTER 2025-05-29 14:16 | Outpatient (CLI) | payer OTHER, SELFPAY ==
--- OUTSIDE RECORDS SUMMARY | 2025-05-29 14:53 | XMS_ITS | Clinical Summary ---
Author Organization [facility] Address [address] [place] [address] Phone Care Team Providers Care Straight Line Press Setter Name Role Phone Van Harper Natacha GRIJALVA Primary Care Provider [phone] Allergies Active Allergy Reactions Criticality Noted Date [...] on file Legal Sex Female 9:20 PM SYSTEMS PLANNER Gender Identity Not on file Sexual Orientation Not on file Last Filed Vital Signs Vital Sign Reading Time Taken Comments Blood Pressure 122/67 01/14/2025 7:45 PM CDT Pulse 63 01/14/2025 7:45 PM CDT Temperature 36.6 C (97.9 F) 01/14/2025 7:45 PM CDT Respiratory Rate 16 01/14/2025 7:45 PM CDT Oxygen Saturation 100% 01/14/2025 7:45 PM CDT Inhaled Oxygen Concentration - - Weight 90.7 kg (200 lb) 01/14/2025 4:19 PM CDT Height 165.1 cm (5' 5) 01/14/2025 4:19 PM CDT Body Mass Index 33.28 01/14/2025 4:19 PM CDT Plan of Treatment Health Maintenance Due Date Last Done Comments Hepatitis C Virus (HCV) Screening 1998 Human Papillomavirus (HPV) Immunization (1 - 3-dose series) 2013 Pap Smear 12/15/2019 Influenza Immunization (#1) 2025 SARS-COV-2 Immunization ( - 2023- season) 2025 Respiratory Syncytial Virus (RSV) Immunization (Adult) (1 - 1-dose 75+ series) 2073 Hepatitis B Immunization Completed 000, 04/15/1999, 1998 Meningococcal Immunization (ACWY) Completed 05/09/2015, 04/17/2010 TdaP Immunization Completed 05/07/2020, 04/17/2010 Pneumococcal Immunization Combined Aged Out No longer eligible b ased on patient's age to complete this topic Rotavirus Immunization Aged Out No lo nger eligible based on patient's age to complete this topic Insurance CIG Care Teams Straight Line Press Setter Relationship Specialty Start Date End Date Harper Araujo APRN PCP - General Advanced Practice Nurse 09/18/23
--- OUTSIDE RECORDS SUMMARY | 2025-05-29 14:53 | XMS_ITS | Patient Health Record ---
Author Organization [facility] Address [address] [facility] [address] [place] [address] Care Team Providers Care Mock Up Maker Name Role Phone Harper Araujo APRN Primary Care Provider Jose holder Fidencio Brewster Unavailable [phone] Allergies Allergen (clinical drug ingredient) Drug/Non Drug Allergy documented on EMR Reaction Allergy Type Onset Date Status amoxicillin Amoxicillin Unknown Drug Allergy 06/16/2022 Ac tive BuSpar Unknown Drug Allergy 06/16/2022 Active levetiracetam Keppra Unknown Drug Allergy 06/16/2022 Ac tive Sulfamethoxazole Unknown Drug Allergy 06/16/2022 Active trimethoprim Trimethoprim Unknown Drug Allergy 06/16/2022 Active brivaracetam Briviact Unknown Drug Allergy 06/16/2022 Act anand clonidine cloNIDine Unknown Drug Allergy 06/16/2022 Active Results Component Value Reference Range Notes Test Reviewed date:12/06/2024 03:39:43 PM Interpretation: Performing Lab: Notes/Report: Test urine NEG 0 - 0 UDT Reviewed date:12/06/2024 03:39:49 PM Interpretation: Performing Lab: Notes/Report: THC NEG 0 - 50 ng/ml Cocaine NEG 0 - 300 ng/ml Amphetamine NEG 0 - 1000 ng/ml Buprenorphine (BUP) NEG 0 - 10 ng/ml Secobarbital (Bar) NEG 0 - 300 ng/ml Oxazepam (BZO) NEG 0 - 300 ng/ml 4-bvlxgezkyf-6,3-olqylysp-4,3-diphenylpyrrolidine (CINDI P) NEG 0 - 300 ng/ml Methamphetamine (MET) NEG 0 - 1000 ng/ml Methylenedioxymethamphetamine (MDMA) NEG 0 - 500 ng/ml Morphine (MOP 300/[id number]) NEG 0 - 300 ng/ml Methadone (MTD) NEG 0 - 300 ng/ml Phencyclidine (PCP) NEG 0 - 25 ng/ml Nortriptyline (TCA) NEG 0 - 1000 ng/ml Oxycodone NEG 0 - 300 ng/ml x NEG 0 - 300 ng/ml Reason For Referral No Information Medications Medication SIG (Take, Route, Frequency, Duration) Notes Start Date End Date Status Qulipta 60 MG Tablet TAKE 1 TABLET BY MOUTH EVERY DAY Oral; Duration: 90 Days Active DULoxetine HCl 60 MG Capsule Delayed Release Particles Oral 06/16/2022 Not-Taking traZODone HCl 50 MG Tablet Oral 06/16/2022 Not-Taking metroNIDAZOLE 500 MG Tablet Oral 06/16/2022 Not-Taking Sertraline HCl 100 MG Tablet TAKE 1 TABLET BY MOUTH EVERY DAY Oral Active DULoxetine HCl 30 MG Capsule Delayed Release Particles Oral 06/16/2022 Not-Taking hydrOXYzine HCl 25 MG Tablet 1 tablet as needed Oral Once a day As needed PRN 06/16/2022 Active Sertraline HCl 25 MG Tablet Oral 06/16/2022 Not-Taking buPROPion HCl ER (XL) 300 MG Tablet Extended Release 24 Hour Oral 06/16/2022 Not-Taking MIRENA 21 MCG/24 HR (UP TO 8 YEARS) 52 MG INTRAUTERINE DEVICE *Reorder from [employer] for eRx and Interaction Alerts* 06/16/2022 Active Immunizations Vaccine Route Administration Date Status Comme nts Maury Covid-19 Vaccine Unknown 05/21/2021 Administere d Social History Tobacco Use: Social History Observation Description Date Details (start date - stop date) Never Smoker NA - NA Sex Assigned At : Social History Observation Description Sex Assigned At Female Social History Miscellaneous: Social Info Question Answer Notes Safety issues: Are there any firearms in the house? No Social History Social Info Question Answer Notes Household: Marital Status: Number of Adults in household: 2 Number of Children in Household: 0 Level of Education: Finished College Drug/Alcohol: Social Info Question Answer Notes Drugs Have you used drugs other than those for medical reasons in the past 12 months? No AUDIT-C (Standard) Did you have a drink containing alcohol in the past year? No Tobacco Use: Social Info Question Answer Notes Tobacco Control (Standard) Tobacco use: Nonsmoker Additional Details Category Social Info Options Details Miscellaneous: Occupation: [employer] Migrated Social History Migrated Social History Alcohol Intake: None 04/15/2022,Tobacco Years: Never smoker 02/25/2022 Drug/Alcohol: Do you smoke marijuana? Den ies Do you drink alcohol? No Problems Problem Type SNOMED Code ICD Code Onset Dates Problem Status W/U Status Risk Notes Problem Attention deficit hyperactivity disorder, predominantly inattentive type (disorder) (36742160) Attention and concentration deficit (R41.840) Active confirmed Vital Signs Heart Rate 89 /min 12/06/2024 Height-cm 165.10 cm 12/06/2024 Blood pressure diastolic 77 mm Hg 12/06/2024 Weight-kg 91.72 kg 12/06/2024 Height 65.00 in 12/06/2024 Blood pressure systolic 118 mm Hg 12/06/2024 Weight 202.2 lbs 12/06/2024 BMI 33.64 kg/m2 12/06/2024 Encounters Encounter Location Date Provider Diagnosis [facility] [address] [address] 12/06/2024 Fidencio Brewster Attention and concentration deficit R41.840 ; Generalized anxiety disorder F41.1 ; Encounter for screening for cardiovascular disorders Z13.6 and Major depressive disorder, recurrent, moderate F33.1 [facility] [address] [address] 12/08/2024 Fidencio Brewster [facility] [address] [address] 12/08/2024 Fidencio Brewster Assessments Encounter Date Diagnosis (ICD Code) Assessment Notes Treatment Notes Treatment Clinical Notes Section Notes 12/06/2024 Attention and concentration deficit (ICD-10 - R41.840) she has concerns for adhd and autism spectrum d/o 12/06/2024 Generalized anxiety disorder (ICD-10 - F41.1) she has concerns for adhd and autism spectrum d/o 12/06/2024 Encounter for screening for cardiovascular disorders (ICD-10 - Z13.6) she has concerns for adhd and autism spectrum d/o 12/06/2024 Major depressive disorder, recurrent, moderate (ICD-10 - F33.1) she has concerns for adhd and autism spectrum d/o 12/06/2024 Other Linn Mosher, a patient with a history of anxiety, depression, and insomnia, presents with concerns about possible autism and ADHD, reporting lifelong symptoms. Suspected Attention Deficit Hyperactivity Disorder (ADHD) Assessment: Patient reports multiple symptoms consistent with ADHD, including difficulty focusing, multitasking to maintain attention, poor time perception, procrastination, forgetfulness, fidgeting, and restlessness. These symptoms have been present since childhood, with a history of behavioral issues in early school years. Patient describes challenges with task organization, emotional regulation, and work relationships. Given the chronic nature and impact on daily functioning, ADHD is strongly suspected. Formal ADHD testing is recommended for definitive diagnosis. Plan: - Schedule ADHD testing - Follow-up appointment to discuss test results and treatment options, including stimulant and non-stimulant medications Suspected Autism Spectrum Disorder (ASD) Assessment: Patient expresses concern about possible autism based on self-research. Reports difficulties with nonverbal cues, emotional introspection, and bodily awareness. Describes shutdowns in response to overstimulation, which may be consistent with autistic meltdowns. Given the complexity of diagnosis, formal autism testing is recommended for further evaluation. Plan: - Provide list of autism testing resources, including [facility] in [place], [place] - Patient to explore testing options and costs Depression Assessment: Patient reports current exacerbation of depressive symptoms due to work-related stress, with a PHQ-9 score of 20 indicating severe depression. However, patient states overall depression is stable and significantly improved compared to previous deep dips. Currently managed with sertraline. Plan: - Continue sertraline 100 mg PO daily - Monitor depressive symptoms, particularly in context of current work-related stressors Anxiety Assessment: Patient reports anxiety is well-controlled with current management. Frequency of panic attacks has significantly decreased, with hydroxyzine used only occasionally as needed. Plan: - Continue hydroxyzine as needed for anxiety symptoms Insomnia Assessment: Previous history of insomnia noted. Patient is no longer taking trazodone, suggesting improvement in sleep issues. Plan: - Discontinue trazodone (already discontinued by patient) - Monitor for any recurrence of sleep disturbances the note is transcribed using speech recognition software. It is a reflection of a visit with the patient. It might have some inaccuracy, including medication names and transcribing errors, though efforts have been made to correct them. 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 Moderate recurrent major depression Severe recurrent major depression withou t psychotic features , Past Psychiatric History: Anxiety Disord er,Major Depressive Episode abdominal aortic aneurysm: No atrial fibrillation: No chronic fatigue syndrome: No essential tremor: No hyperlipidemia: No hypertension: No Parkinson's disease: No restless leg syndrome: No type 1 diabetes mellitus: No type 2 diabetes mellitus: No vitamin B12 deficiency: No vitamin D deficiency: No Surgical History Surgery Date(Month/Year) Procedure on kidney ([id number]) Procedure on bladder ([id number]) Any surgical history 09/19/2008 Other 09/19/2008
--- OUTSIDE RECORDS SUMMARY | 2025-05-29 14:53 | XMS_ITS | Clinical Summary ---
Author Organization [facility] Address [address] [place] [address] Care Team Providers Care Kiosk Sales Representative Name Role Phone Blessingrosi Harper SHABNAM Primary Care Provider [phone] Allergies Active Allergy Reactions Criticality Noted Date [...] on file Legal Sex Female 10:36 PM HR SPECIALIST Gender Identity Not on file Sexual Orientation Not on file Obstetrics History Para Term AB IAB SAB Ectopic Multiple Livin g Live Births 0 0 0 0 0 0 0 0 0 0 0 Last Filed Vital Signs Vital Sign Reading Time Taken Comments Blood Pressure 114/70 07/24/2024 12:53 PM HR SPECIALIST Pulse 67 05/08/2024 10:34 AM CDT Temperature 36.6 C (97.8 F) 09/15/2022 8:46 AM HR SPECIALIST Respiratory Rate 14 09/15/2022 8:46 AM HR SPECIALIST Oxygen Saturation 97% 05/08/2024 10: 34 AM CDT Inhaled Oxygen Concentration - - Weight 101.2 kg (223 lb 3.2 oz) 024 12:53 PM HR SPECIALIST Height 165.1 cm (5' 5) 07/24/2024 12:5 3 PM HR SPECIALIST Body Mass Index 37.14 07/24/2024 12:53 PM HR SPECIALIST Plan of Treatment Health Maintenance Due Date Last Done Comments Cervical Cancer Screening 1998 Hepatitis C Screening 1998 HPV Vaccines (1 - 3-dose series) 2013 Depression Screening 04/26/2023 04/26/2022, 02/22/2022, 11/30/2021, Additional history exists Influenza Vaccine (#1) 2025 Regular Well Visit/Exam 18-64 07/24/2025 07/24/2024, 04/26/2022 DTaP/Tdap/Td Vaccine (8 - Td or Tdap) 05/07/2030 05/07/2020, 04/17/2010, 03/19/2004, Additional history exists Hepatitis B Screening Completed 03/25/2000 , 04/15/1999, 1998 Varicella Vaccines Completed 04/17/2010, 01/28/2000 Pneumococcal vaccine <65 Aged Out No longer eligible based on patient's age to complete this topic Insurance [facility] [place] [address] [place] [address] Care Teams Kiosk Sales Representative Relationship Specialty Start Date End Date Harper Araujo NP [address] [place] [address] [place] [address] PCP - General Nurse Practitioner 05/08/24
[2025-05-29 19:36] LABS: Add Urine Microscopic? YES; Appearance Urine Cloudy (Clear); Glucose Urine UA Negative (Negative); Leukocyte Esterase Ur 2+ LEU/UL (Negative); Need Manual Microscopic Reviewed; Nitrate Urine Negative (Negative); Specific Grav Ur 1.026 (1.001-1.035)
== END 2025-05-29 14:17 | disposition home or self-care (01) ==
LOC: ANHBWCLAB 14:17
PROVIDERS: PCP Nurse Practitioner Adult Health; Visit Provider Nurse Practitioner Adult Health
DX: R39.9 Unspecified symptoms and signs involving the genitourinary system (principal)
CPT/HCPCS: 81001

== ENCOUNTER 2025-06-24 15:54 | Outpatient (CLI) | payer OTHER, SELFPAY ==
[2025-06-24 19:22] LABS: Add Urine Microscopic? YES; Appearance Urine Clear (Clear); Glucose Urine UA Negative (Negative); Leukocyte Esterase Ur 2+ LEU/UL (Negative); Need Manual Microscopic Reviewed; Nitrate Urine Negative (Negative); Specific Grav Ur 1.027 (1.001-1.035)
== END 2025-06-24 15:55 | disposition home or self-care (01) ==
PROVIDERS: PCP Nurse Practitioner Adult Health; Visit Provider Nurse Practitioner Adult Health
DX: R39.9 Unspecified symptoms and signs involving the genitourinary system (principal)
CPT/HCPCS: 81001; 87086

== ENCOUNTER 2025-08-11 19:08 | Emergency (ER) | payer OTHER, SELFPAY ==
--- OUTSIDE RECORDS SUMMARY | 2025-08-11 19:10 | XMS_ITS | Clinical Summary ---
Author Organization [facility] Address [address] [place] [address] Care Team Providers Care Intermediate Frame Tender Name Role Phone Blessingrosi Harper SHABNAM Primary Care Provider Allergies Active Allergy Reactions Criticality Noted Date [...] EVERY DAY FOR 30 DAYS 2 Active Qulipta 60 mg tablet Take 1 tablet by mouth daily 4 Active hydrOXYzine (ATARAX) 25 mg tabletIndicati ons:RAMSEY (generalized anxiety disorder) TAKE 1 TABLET BY MOUTH TWICE A DAY NEEDED FOR ANXIETY 60 tablet 1 2 025 Discontin ued(Patie nt Reported) Active Problems Problem Noted Date Diagnosed Date [...] Reviewed red flags. MOP here at appt svetlana/Linn and both verbalize understanding. Hypoglycemia 07/11/2017 07/11/2017 Weight loss, unintentional 07/11/2017 0 01/11/2019 Orthostatic hypotension 07/11/201712/19 Occipital lymphadenopathy 05/06/2016 Overview (12/23/2016): Occipital lymphadenopathy Reflux nephropathy 11/22/2014 9 Overview (12/23/2016): Non-obstructive reflux-associated chronic pyelonephritis Encounters Date Type Department Care Team Description 08/05/2025 3:40 PM DANCING INSTRUCTOR Office Visit [facility] [address] [address] Debora Nolasco, Encounter for annual routine gynecological examination (Primary Dx); Encounter for routine checking of intrauterine contraceptive device (IUD) from Last 3 Months Immunizations Immunization Administration Dates Next Due DTaP [...] OTHER SURGICAL HISTORY Vesicoureteral reflux: surgical repair BLADDER SURGERY 07/28 Medical History Medical History Date Comments Hx [...] of 36.0 to 36.9 in adult 11/30/2021 Anxiety Family History Medical History Relation Name Comments Learning disabilities Brother 1 Diabetes Father Diabetes type II Father Diabetes me llitus type 2; Hypertension Father Hypertension; Other Father Lumbar spine di sease; Cancer Maternal Grandfather Heart attack Maternal Grandfather Prostate cancer Maternal Grandfather Cerebral aneurysm Maternal Grandmother Hearing loss Mother Learning disabilities Mother Cancer Paternal Grandfather Relation Name Status Comments Brother 1 Alive Brother 2 Tye Alive Father Alive Maternal Grandfather Alive Maternal Grandmother Mother Alive Paternal Grandfather Paternal Grandmother Social History Tobacco Use Types Packs/Day Years Used Date Smoking Tobacco: Never Smokeless Tobacco: Never Alcohol Use Standard Drinks/Week Comments No 0 (1 standard drink = 0.6 oz pur e alcohol) PHQ-2 Answer Date Recorded PHQ-2 Total Score (If total score is 3 or more points, staff should administer the PHQ-9) 0 04/26/2022 Comments No Sex and Gender Information Value Date Recorded Sex Assigned at Not on file Legal Sex Female 10:36 PM DANCING INSTRUCTOR Gender Identity Not on file Sexual Orientation Not on file Occupation Industry Job Start Date Job End Date Not on file Not on file Not on file Not on file Obstetrics History Para Term AB IAB SAB Ectopic Multiple Livin g Live Births 0 0 0 0 0 0 0 0 0 0 0 Last Filed Vital Signs Vital Sign Reading Time Taken Comments Blood Pressure 118/78 08/05/2025 3:39 PM DANCING INSTRUCTOR Pulse 67 05/08/2024 10:34 AM CDT Temperature 36.6 C (97.8 F) 09/15/2022 8:46 AM DANCING INSTRUCTOR Respiratory Rate 14 09/15/2022 8:46 AM DANCING INSTRUCTOR Oxygen Saturation 97% 05/08/2024 10:34 AM CDT Inhaled Oxygen Concentration - - Weight 88.9 kg (196 lb) 08/05/2025 3:39 PM DANCING INSTRUCTOR Height 165.1 cm (5' 5) 08/05/2025 3:39 PM DANCING INSTRUCTOR Body Mass Index 32.62 08/05/2025 3:39 PM DANCING INSTRUCTOR Plan of Treatment Health Maintenance Due Date Last Done Comments Cervical Cancer Screening 1998 Hepatitis C Screening 1998 HPV Vaccines (1 - 3-dose series) 2013 Depression Screening 04/26/2023 04/26/2022, 02/22/2022, 11/30/2021, Additional history exists Influenza Vaccine (#1) 2025 Regular Well Visit/Exam 18-64 08/05/2026 08/05/2025, 07/24/2024, 04/26/2022 DTaP/Tdap/Td Vaccine (8 - Td or Tdap) 05/07/2030 05/07/2020, 04/17/2010, 03/19/2004, Additional history exists Hepatitis B Screening Completed 03/25/2000 , 04/15/1999, 1998 Varicella Vaccines Completed 04/17/2010, 01/28/2000 Pneumococcal vaccine <65 Aged Out No longer eligible based on patient's age to complete this topic Insurance [facility] [place] [address] Care Teams Intermediate Frame Tender Relationship Specialty Start Date End Date Harper Araujo NP [facility] [address] PCP - General Nurse Practitioner 05/08/24
--- OUTSIDE RECORDS SUMMARY | 2025-08-11 19:10 | XMS_ITS | Patient Health Record ---
Author Organization [facility] Address [address] [facility] [address] [place] [address] Care Team Providers Care Berry Picker Name Role Phone Harper Araujo APRN Primary Care Provider Jose holder Fidencio Brewster Unavailable [phone] Allergies Allergen (clinical drug ingredient) Drug/Non Drug [...] Active Results Component Value Reference Range Notes UDT Reviewed date:12/06/2024 03:39:49 PM Interpretation: Performing Lab: Notes/Report: Amphetamine (AMP) NEG 0 - 1000 ng/ml Buprenorphine (BUP) NEG 0 - 10 ng/ml Oxazepam (BZO) NEG 0 - 300 ng/ml Cocaine (JASBIR) NEG 0 - 300 ng/ml Methamphetamine (mAMP) NEG 0 - 300 ng/ml Methylenedioxymethamphetamine (MDMA) NEG 0 - 500 ng/ml Morphine (MOP) NEG 0 - 25 ng/ml Methadone (MTD) NEG 0 - 300 ng/ml Oxycodone (OXY) NEG 0 - 300 ng/ml THC NEG 0 - 50 ng/ml x NEG 0 - 1000 ng/ml x NEG 0 - 1000 ng/ml x NEG 0 - 300 ng/ml x NEG 0 - 300 ng/ml x NEG 0 - 300 ng/ml Test Reviewed date:12/06/2024 03:39:43 PM Interpretation: Performing Lab: Notes/Report: Test urine NEG 0 - 0 Reason For Referral No Information Medications Medication [...] YEARS) 52 MG INTRAUTERINE DEVICE *Reorder from bTendo for eRx and Interaction Alerts* 06/16/2022 Active [...] deficit hyperactivity disorder, predominantly inattentive type (disorder) (57024137) Attention and concentration deficit (R41.840) Active confirmed Vital Signs Heart Rate 89 /min 12/06/2024 Height-cm 165.10 cm 12/06/2024 Blood pressure diastolic 77 mm Hg 12/06/2024 Weight-kg 91.72 kg 12/06/2024 Height 65.00 in 12/06/2024 Blood pressure systolic 118 mm Hg 12/06/2024 Weight 202.2 lbs 12/06/2024 BMI 33.64 kg/m2 12/06/2024 Encounters Encounter Location Date Provider Diagnosis [facility] [place] [address] [facility] [address] [address] 12/06/2024 Fidencio Brewster Attention and concentration deficit R41.840 ; Generalized anxiety disorder F41.1 ; Encounter for screening for cardiovascular disorders Z13.6 and Major depressive disorder, recurrent, moderate F33.1 [facility] [address] [address] 12/08/[address] [facility] [place] [address] [address] 12/08/2024 Fidencio Brewster Assessments Encounter Date Diagnosis [...] for adhd and autism spectrum d/o 12/06/2024 Spencer Mosher, a patient with a history of [...] Provide list of autism testing resources, including [facility] in [place], [place] - Patient to explore testing options [...] Start Date Coverage End Date Juan Manuel [address] [place] [address] [id number] KERON Mosher Self - patient is the insured [...] Surgical History Surgery Date(Month/Year) Procedure on kidney (953817685) Procedure on bladder ([id number]) Any surgical history 09/19/2008 Other 09/19/2008
--- OUTSIDE RECORDS SUMMARY | 2025-08-11 19:11 | XMS_ITS | Clinical Summary ---
Author Organization [facility] Address [address] [place] [address] Phone Care Team Providers Care Test Center Administrator Name Role Phone Harper Araujo VALENTINE Primary Care Provider [phone]- [phone] Allergies Active Allergy Reactions Criticality Noted Date Comments Amoxicillin Unknown 09/18/2023 Sulfamethoxazole-Trimethoprim Unknown 2022 Medications sertraline (ZOLOFT) 100 MG Tablet Take 100 mg by mouth daily. Active Topiramate (TOPAMAX PO) Take 50 mg by mouth as needed. Active Encounters Date Type Department Care Team Description 06/29/2025 1:10 PM CDT - 06/29/2025 3:48 PM CDT Emergency [facility] Emergency [address] [place] [address] Ignacio Worthy MD Cystitis Discharge Disposition: Discharged to home or Selfcare 06/29/2025 Travel from Last 3 Months Social History Tobacco Use Types Packs/Day Years Used Date Smoking Tobacco: Never Smokeless Tobacco: Never Tobacco Cessation:Counseling Given: Not Answered Alcohol Use Standard Drinks/Week Comments Never 0 (1 standard drink = 0.6 oz pur e alcohol) Comments No Sex and Gender Information Value Date Recorded Sex Assigned at Not on file Legal Sex Female 9:20 PM MARKETING [employer] Gender Identity Not on file Sexual Orientation Not on file Last Filed Vital Signs Vital Sign Reading Time Taken Comments Blood Pressure 105/65 06/29/2025 3:44 PM CDT Pulse 80 06/29/2025 3:44 PM CDT Temperature 36.6 C (97.9 F) 06/29/2025 1:04 PM CDT Respiratory Rate 16 06/29/2025 3:44 PM CDT Oxygen Saturation 100% 06/29/2025 3:44 PM CDT Inhaled Oxygen Concentration - - Weight 90.7 kg (200 lb) 06/29/2025 1:04 PM CDT Height 165.1 cm (5' 5) 06/29/2025 1:04 PM CDT Body Mass Index 33.28 06/29/2025 1:04 PM CDT Plan of Treatment Health Maintenance Due Date Last Done Comments Hepatitis C Virus (HCV) Screening 1998 Human Papillomavirus (HPV) Immunization (1 - 3-dose series) 2013 Pap Smear 12/15/2019 Influenza Immunization (#1) 2025 SARS-COV-2 Immunization (2 - season) 2025 05/21/2021 Respiratory Syncytial Virus (RSV) Immunization (Adult) (1 - 1-dose 75+ series) 2073 Hepatitis B Immunization Completed 000, 04/15/1999, 1998 Varicella Immunization Completed 0, 01/28/2000 Meningococcal Immunization (ACWY) Completed 05/09/2015, 04/17/2010 TdaP Immunization Completed 05/07/2020, 04/17/2010 Pneumococcal Immunization Combined Aged Out No longer eligible b ased on patient's age to complete this topic Rotavirus Immunization Aged Out No lo nger eligible based on patient's age to complete this topic Procedures Procedure Name Priority Date/Time Associated Diagnosis Comments CT RENAL STONE STUDY (ABDOMEN AND PELVIS W/O CONTRAST) Stat with Interpretation 06/29/2025 1:36 PM CDT CBC WITH AUTO DIFFERENTIAL STAT 06/29/2025 1:31 PM CDT LIPASE STAT 06/29/2025 1:31 PM CDT MAGNESIUM (MG) STAT 06/29/2025 1:31 PM CDT CMP (COMPREHENSIVE METABOLIC PANEL) STAT 06/29/2025 1:31 PM CDT COMPLETE BLOOD COUNT (CBC) WITH DIFF STAT 06/29/2025 1:31 PM CDT URINALYSIS REFLEX IF INDICATED BY ABNORMAL RESULTS STAT 06/29/2025 1:15 PM CDT CULTURE, URINE STAT 06/29/2025 1:15 PM CDT POCT URINE HCG () STAT 06/29/2025 1:[address] - ABDOMEN/PELVIS 06/29/2025 12:00 AM CDT from Last 3 Months Results * CT RENAL STONE STUDY (ABDOMEN AND PELVIS W/O CONTRAST) (06/29/2025 1:36 PM CDT) Anatomical Region Laterality Modality Abdomen N/A Computed Tomogra phy 06/29/2025 1:36 PM CDT Impressions 06/29/2025 5:40 PM CDT IMPRESSION: 1. Nonobstructing right upper pole renal calculus measuring 3 mm. Scarring in the upper pole the right kidney could be sequela of prior infection. No acute abnormality. The preliminary report and any related communication were provided by [facility] service, as documented in the medical record. Narrative 06/29/2025 5:40 PM CDT DICTATING PHYSICIAN: Edmundo Walls D.O. DATE: 06/29/2025 1:36 PM EXAM: CT RENAL STONE STUDY (ABDOMEN AND PELVIS W/O CONTRAST) COMPARISON: None. CLINICAL HISTORY: Flank pain, kidney stone suspected, UTI x 1 month- on third antibiotic round. flank pain and dysuria. FINDINGS: Unenhanced CT of the abdomen and pelvis obtained using renal calculus protocol. Low-dose protocol utilized. Suboptimal evaluation of the solid organs, vasculature and bowel due to lack of IV and oral contrast. Radiation dose reduction technique(s) were used. Radiation dose reduction techniques were employed. CTDIvol: 12.7 mGy. DLP: 688 mGy-cm. ABDOMEN: Liver: Normal size and homogeneous density. Gallbladder: No calcified gallstones. Spleen: Normal size and homogeneous density. Adrenals: No mass. Pancreas: No peripancreatic fat stranding. Aorta/IVC: Normal size. Kidneys/Ureters/Bladder: Nonobstructing right upper pole renal calculus measuring 3 mm. Punctate nonobstructing right inferior pole renal calculus versus parenchymal calcification. Probable scarring in the upper pole the right kidney. No exophytic mass. Calcified pelvic phleboliths degraded evaluation of the distal ureters. The bladder is decompressed. PELVIS: Reproductive organs: Intrauterine device within the uterus. No pelvic mass. Bowel: No dilation. Normal appendix. Mesentery: No adenopathy. Peritoneum: No free fluid. Lower chest: Lung bases are clear. Bones/Body wall: No destructive lesion. No significant abnormality. . Procedure Note Edmundo Walls, - 06/29/2025 DICTATING PHYSICIAN: Edmundo Walls D.O. DATE: 06/29/2025 1:36 PM EXAM: CT RENAL STONE STUDY (ABDOMEN AND PELVIS W/O CONTRAST) COMPARISON: None. CLINICAL HISTORY: Flank pain, kidney stone suspected, UTI x 1 month- onthird antibiotic round. flank pain and dysuria. FINDINGS: Unenhanced CT of the abdomen and pelvis obtained using renalcalculus protocol. Low-dose protocol utilized. Suboptimal evaluation ofthe solid organs, vasculature and bowel due to lack of IV and oralcontrast. Radiation dose reduction technique(s) were used. Radiation dosereduction techniques were employed. CTDIvol: 12.7 mGy. DLP: 688 mGy-cm. ABDOMEN: Liver: Normal size and homogeneous density. Gallbladder: No calcified gallstones. Spleen: Normal size and homogeneous density. Adrenals: No mass. Pancreas: No peripancreatic fat stranding. Aorta/IVC: Normal size. Kidneys/Ureters/Bladder: Nonobstructing right upper pole renal calculusmeasuring 3 mm. Punctate nonobstructing right inferior pole renal calculusversus parenchymal calcification. Probable scarring in the upper pole theright kidney. No exophytic mass. Calcified pelvic phleboliths degradedevaluation of the distal ureters. The bladder is decompressed. PELVIS: Reproductive organs: Intrauterine device within the uterus. No pelvicmass. Bowel: No dilation. Normal appendix. Mesentery: No adenopathy. Peritoneum: No free fluid. Lower chest: Lung bases are clear. Bones/Body wall: No destructive lesion. No significant abnormality. . IMPRESSION: 1. Nonobstructing right upper pole renal calculus measuring 3 mm. Scarringin the upper pole the right kidney could be sequela of prior infection. Noacute abnormality. The preliminary report and any related communication were provided [facility], as documented in the medical record. us Ignacio Worthy MD IMG CT ORDERABLES Final R esult * (ABNORMAL) CBC with Auto Differential (06/29/2025 1:31 PM CDT) WBC 7.20 4.00 - 12.00 10(3)/mcL 06/29/2025 1:38 PM CDT [facility] RBC 4.82 3.80 - 5.30 10(6)/mcL 06/29/2025 1:38 PM CDT [facility] HEMOGLOBIN (HGB) 14.8 12.0 - 15.8 g/dL 06/29/2025 1:38 PM CDT [facility] HEMATOCRIT (HCT) 44.0 36.0 - 47.0 % 06/29/2025 1:38 PM CDT [facility] MCV 91.3 82.0 - 96.0 fL 06/29/2025 1:38 PM CDT [facility] MCH 30.7 26.0 - 34.0 pg 06/29/2025 1:38 PM CDT [facility] MCHC 33.6 31.0 - 36.0 g/dL 06/29/2025 1:38 PM CDT [facility] PLATELET COUNT 341 140 - 440 10(3)/mcL 06/29/2025 1:38 PM CDT [facility] RDW 12.3 11.8 - 15.5 % 06/29/2025 1:38 PM CDT [facility] MPV 9.9 9.7 - 12.4 fL 06/29/2025 1:38 PM CDT [facility] NEUTROPHILS 61.7 47.0 - 73.0 % 06/29/2025 1:38 PM CDT [facility] LYMPHOCYTES 27.4 18.0 - 42.0 % 06/29/2025 1:38 PM CDT [facility] MONOCYTES 6.3 4.0 - 12.0 % 06/29/2025 1:38 PM [facility] EOSINOPHILS 2.9 0.0 - 5.0 % 06/29/2025 1:38 PM CDT [facility] BASOPHILS 1.1(H) 0.0 - 1.0 % 06/29/2025 1:38 PM [facility] IMMATURE GRANULOCYTE 0.6(H) 0.0 - 0.4 % 06/29/2025 1:38 PM [facility] Comment:Immature Granulocyte s includes Metamyelocytes, Myelocytes, and Promyelocytes. ABSOLUTE NEUTROPHILS 4.45 1.60 - 7.70 10(3)/mcL 06/29/2025 1:38 [facility] L[facility] 1.97 1.30 - 3.20 10(3)/[facility] 06/29/2025 1:38 [facility] ABS[facility]UTE MONOCYTES 0.45 0.20 - 1.00 10(3)/[facility] 06/29/2025 1:38 PM [facility] ABSOLUTE EOSINOPHIL 0.21 0.00 - 0.40 10(3)/[facility] 06/29/2025 1:38 PM CDT [facility] ABSOLUTE BASOPHILS 0.08 0.00 - 0.10 10(3)/[facility] 06/29/2025 1:38 PM [facility] ABSOLUTE IMMATURE GRANULOCYTE 0.04(H) 0.00 - 0.03 10 (3) [facility]. 06/29/2025 1:38 PM [facility] NRBC PER 100 WBC 0 06/29/20 1:38 PM [facility] Blood Venipuncture / Unknown 06/29/2025 1:31 PM CDT 06/29/2025 1:36 PM CDT us Ignacio Worthy MD HEMATOLOGY ORDERABLES Fin al Result Performing Organization Address City/[facility] Co de Phone Number [facility] [address] [place] [address] * Magnesium (06/29/2025 1:31 PM CDT) MAGNESIUM 1.9 1.6 - 2.6 mg/dL 06/29/2025 2:00 PM CDT [facility] Blood Venipuncture / Unknown 06/29/2025 1:31 PM CDT 06/29/2025 1:36 PM CDT us Ignacio Worthy MD CHEMISTRY ORDERABLES Kandice l Result Performing Organization Address City/[facility] Co de Phone Number [facility] [address] [place] [address] * Lipase (06/29/2025 1:31 PM CDT) LIPASE 22 8 - 78 U/L 06/29/2025 2:00 PM CDT [facility] Blood Venipuncture / Unknown 06/29/2025 1:31 PM CDT 06/29/2025 1:36 PM CDT us Ignacio Worthy MD CHEMISTRY ORDERABLES Kandice l Result Performing Organization Address City/[facility] Co de Phone Number [facility] [address] [place] [address] * (ABNORMAL) CMP (06/29/2025 1:31 PM CDT) SODIUM 140 136 - 145 mmol/L 06/29/2025 2:00 PM CDT [facility] POTASSIUM 3.9 3.5 - 5.1 mmol/L 06/29/2025 2:00 PM CDT [facility] CHLORIDE 109(H) 98 - 107 mmol/L 06/29/2025 2:00 PM CDT [facility] CO2, VENOUS 22 22 - 30 mmol/L 06/29/2025 2:00 PM CDT [facility] ANION GAP 12.9 <18.0 mmol/L 06/29/2025 2:00 PM CDT [facility] GLUCOSE 86 70 - 99 mg/dL 06/29/2025 2:00 PM CDT [facility] BUN 13 5 - 18 mg/dL 06/29/2025 2:00 PM CDT [facility] CREATININE, BLOOD 0.80 0.60 - 1.00 mg/dL 06/29/2025 2:00 PM CDT [facility] BUN/CREATININE RATIO 16 12 - 20 ratio 06/29/2025 2:00 PM CDT [facility] TOTAL PROTEIN 7.1 6.0 - 8.0 g/dL 06/29/2025 2:00 PM CDT [facility] ALBUMIN 4.2 3.5 - 5.0 g/dL 06/29/2025 2:00 PM CDT [facility] A/G RATIO 1.4 1.0 - 2.2 06/29/2025 2:00 PM CDT [facility] CALCIUM 9.5 8.7 - 10.5 mg/dL 06/29/2025 2:00 PM CDT [facility] T BILI 0.3 0.2 - 1.2 mg/dL 06/29/2025 2:00 PM CDT [facility] SGOT (AST) 22 <43 U/L 06/29/2025 2:00 PM CDT [facility] SGPT (ALT) 13 <56 U/L 06/29/2025 2:00 PM CDT [facility] ALKALINE PHOSPHATASE 74 40 - 150 U/L 06/29/2025 2:00 PM CDT [facility] GFR, ESTIMATED >60 >=60 06/29/2025 2:00 PM CDT [facility] Comment: Creatinine Clearance is the preferred criteria for selecting drug dose adjustments in renally impaired patients. The GFR is provided as additional pertinent clinical information. GFR is reported in mL/min/1.73 sq m. Calculation based on the 2020 Chronic Kidney Disease Epidemiology Collaboration (CKD-EPI) equation refit without adjustment for race. GFR, EST. >60 >=60 025 2:00 PM CDT [facility] Comment: Creatinine Clearance is the preferred criteria for selecting drug dose adjustments in renally impaired patients. The GFR is provided as additional pertinent clinical information. GFR is reported in mL/min/1.73 sq m. Calculation based on the 2009 Chronic Kidney Disease Epidemiology Collaboration (CKD-EPI). GFR, EST. NONAFRICAN >60 >=60 06/29/2025 2:00 PM CDT [facility] Comment: Creatinine Clearance is the preferred criteria for selecting drug dose adjustments in renally impaired patients. The GFR is provided as additional pertinent clinical information. GFR is reported in mL/min/1.73 sq m. Calculation based on the 2009 Chronic Kidney Disease Epidemiology Collaboration (CKD-EPI). Blood Venipuncture / Unknown 06/29/2025 1:31 PM CDT 06/29/2025 1:36 PM CDT us Ignacio Worthy MD CHEMISTRY ORDERABLES Kandice l Result [facility] [address] [place] [address] * (ABNORMAL) Urinalysis w/ Reflex (06/29/2025 1:15 PM CDT) SPECIFIC GRAVITY 1.025 1.003 - 1.030 06/29/2025 1:55 PM CDT [facility] URINE PH 6.0 5.0 - 9.0 06/29/2025 1:55 PM CDT [facility] WBC ESTERASE 500 /uL(A) Negative 06/29/2025 1:55 PM CDT [facility] NITRITE Negative Negative 06/29/2025 1:55 PM CDT [facility] PROTEIN, RANDOM URINE 30 mg/dL(A) Negative 06/29/2025 1:55 PM CDT [facility] URINE GLUCOSE, QUAL Negative Negative 06/29/2025 1:55 PM CDT [facility] URINE KETONES Negative Negative 06/29/2025 1:55 PM CDT [facility] UROBILINOGEN Normal Normal mg/dL 06/29/2025 1:55 PM CDT [facility] URINE BLOOD 10 /uL(A) Negative jose/ul 06/29/2025 1:55 PM CDT [facility] URINALYSIS COLOR Dark Yellow 025 1:55 PM CDT [facility] URINALYSIS CLARITY Slightly Cloudy 06/29/2025 1:55 PM CDT [facility] WBC (Urine) 11-20(A) Negative, 0-5 /hpf 06/29/2025 1:55 PM CDT [facility] URINE RBC'S 0-2 Negative, 0-2 /hpf 06/29/2025 1:55 PM CDT [facility] EPITHELIAL CELLS Large amount squamous /lpf 06/29/2025 1:55 PM CDT [facility] BACTERIA, URINE Many(A) Negative /hpf 06/29/2025 1:55 PM CDT [facility] Urine URINE SPECIMEN / Unknown Non-Phlebotomy Collection / Unknown 06/29/2025 1:15 PM CDT 06/29/2025 1:19 PM CDT us Ignacio Worthy MD URINE ORDERABLES Final Re sult [facility] [address] [place] [address] * Culture, Urine (06/29/2025 1:15 PM CDT) CULTURE RESULTS Mixed Growth of One or More Distal Urethral Contaminants 06/30/2025 10:20 PM CDT [facility] Urine URINE SPECIMEN / Unknown Non-Phlebotomy Collection / Unknown 06/29/2025 1:15 PM CDT 06/29/2025 1:19 PM CDT Ignacio Worthy MD MICROBIOLOGY - GENERAL OR DERABLES Final Result [facility] [address] [place] [address], [place] * POCT Urine HCG () (06/29/2025 1:13 PM CDT) Pathologist [facility] POC URINE Negative POC URINE CONTROL [place] Urine 06/29/2025 1:13 PM CDT Ignacio Worthy MD POINT OF CARE TESTING (MA NUAL) Final Result * CT - ABDOMEN/PELVIS (06/29/2025 12:00 AM CDT) 06/29/[address] ORDERABLES Final Result Performing Organization Address City/[facility]/ZIP Co de Phone Number SCAN from Last 3 Months Insurance [employer] Care Teams Test Center Administrator Relationship Specialty Start Date End Date Harper Araujo APRN PCP - General Advanced Practice Nurse 09/18/23
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
[2025-08-11 19:16] VITALS: BP 125/75; PULSE 85; RESP 14; TEMP 36.2; O2SAT 99
--- NOTE | 2025-08-11 19:24 | ED.URI ---
HPI - URI/Sore Throat General Chief Complaint: Upper Respiratory Infection Stated Complaint: Poss Sinus/Dizziness/Headache/Nausea Related Data Home Medications ?Medication ?Instructions ?Recorded ?Confirmed ?Last Taken ?Type Mirena 08/11/25 Unknown History Allergies Allergy/AdvReac Type Severity Reaction Status Date / Time amoxicillin Allergy Intermediate Rash Verified 08/11/25 19:20 brivaracetam Allergy Unknown Unknown Verified 08/11/25 19:20 buspirone Allergy Unknown Unknown Verified 08/11/25 19:20 levetiracetam Allergy Unknown Unknown Verified 08/11/25 19:20 clonidine AdvReac Intermediate Nausea and Verified 08/11/25 19:20 Vomiting sulfamethoxazole (From AdvReac Intermediate Nausea and Verified 08/11/25 19:20 Bactrim) Vomiting trimethoprim (From Bactrim) AdvReac Intermediate Nausea and Verified 08/11/25 19:20 Vomiting PMFSH Family History Family History Father Diabetes mellitus Hypertension Depression Heart disease Sleep apnea Mother Hypertension Depression Sibling Depression Sleep apnea Grandparent Hypertension Heart disease Cerebrovascular accident Grandparent Hypertension Heart disease Sleep apnea Social History Social History Smoking status: Never smoker Alcohol intake: never Substance use: never Substance use type: does not use Do You Feel Safe in your Home?: Yes Lack of Transportation: No Lack of Food: Never True Current Housing: I Have Housing Concerned About Future Housing: No Difficulty Paying Gas/Electric Bills: No Difficulty Paying for Meds: No Currently Unemployed: No Education: Bachelor's Degree Difficulty w/ Childcare or Family Care: No Living arrangements: with family Gender identity (if verbalized by the patient): Female Agree to blood products: Yes Course Vital Signs Vital signs: Vital Signs Temperature 36.2 C L 08/11/25 19:16 Pulse Rate 85 08/11/25 19:16 Respiratory Rate 14 08/11/25 19:16 Blood Pressure 125/75 08/11/25 19:16 Pulse Oximetry 99 08/11/25 19:16 Oxygen Delivery Room Air 08/11/25 19:16 Temperature 36.2 C L 08/11/25 19:16 Pulse Rate 85 08/11/25 19:16 Respiratory Rate 14 08/11/25 19:16 Blood Pressure 125/75 08/11/25 19:16 Pulse Oximetry 99 08/11/25 19:16 Oxygen Delivery Room Air 08/11/25 19:16 Discharge Plan Discharge Patient Language: Mohawk Prescriptions: No Action Mirena sertraline 100 mg tablet See Rx Instructions .ROUTE .COMPLEX Qty: 90 3RF Dose Instruction: TAKE 1 TABLET BY MOUTH EVERY DAY Rx Instructions: TAKE 1 TABLET BY MOUTH EVERY DAY Qulipta 60 mg tablet See Rx Instructions .ROUTE .COMPLEX Qty: 90 3RF Dose Instruction: TAKE 1 TABLET BY MOUTH EVERY DAY Rx Instructions: TAKE 1 TABLET BY MOUTH EVERY DAY Follow-up/Referrals: Harper Araujo APRN [Primary Care Provider, Family Practice]
--- NOTE | 2025-08-11 19:27 | ED_ITS ---
HPI - URI/Sore Throat General Chief Complaint: Upper Respiratory Infection Stated Complaint: Poss Sinus/Dizziness/Headache/Nausea Time Seen by Provider: 08/11/25 19:27 Source: patient, family, RN notes reviewed and old records reviewed Mode of arrival: ambulatory Limitations: no limitations History of Present Illness HPI Narrative: 24-year-old female who presents to [facility] with complaints of 2 week duration of sinus congestion with productive cough. Patient reports that she has felt worse for the past 2 days and dizziness. and today she has had nausea and vomiting. Patient reports that she has been taking Benadryl for her symptoms and has been taking her migraine medication for her headaches MD elicited complaint: rhinorrhea, nasal congestion, sinus pain and other ( headache) Onset (ago): week(s) (2) Pain scale (0-10): 4 Description of mucous: green Able to tolerate fluids by mouth: Yes Treatments prior to arrival: other (Benadryl and migriane mediations) Related Data Home Medications ?Medication ?Instructions ?Recorded ?Confirmed ?Last Taken ?Type Mirena 08/11/25 Unknown History Allergies Allergy/AdvReac Type Severity Reaction Status Date / Time amoxicillin Allergy Intermediate Rash Verified 08/11/25 19:20 brivaracetam Allergy Unknown Unknown Verified 08/11/25 19:20 buspirone Allergy Unknown Unknown Verified 08/11/25 19:20 levetiracetam Allergy Unknown Unknown Verified 08/11/25 19:20 clonidine AdvReac Intermediate Nausea and Verified 08/11/25 19:20 Vomiting sulfamethoxazole (From AdvReac Intermediate Nausea and Verified 08/11/25 19:20 Bactrim) Vomiting trimethoprim (From Bactrim) AdvReac Intermediate Nausea and Verified 08/11/25 19:20 Vomiting Review of Systems Review of Systems: CONSTITUTIONAL: Reports malaise, no chills, sweats, or fever. EYES: Denies visual changes, redness, or discharge. ENT: Reports rhinorrhea, congestion, sinus pain, no otalgia and no sore throat. CARDIOVASCULAR: Denies chest pain, palpitations, or edema. RESPIRATORY: Reports productive cough green phlegm? Denies dyspnea. GASTROINTESTINAL: Denies abdominal pain,positive for nausea, vomiting,no diarrhea SKIN: Denies rash or itching. MUSCULOSKELETAL: Denies myalgia. NEUROLOGIC: Reports headache. All systems reviewed & are unremarkable except as noted in HPI and below PMFSH Past Medical History Medical History (Updated 08/13/25 @ 18:37 by Mariajose Cleveland APRN) Panic attacks Anxiety and depression Migraines Surgical History Surgical History (Updated 08/13/25 @ 18:36 by Mariajose Cleveland APRN) History of urinary tract surgery surgery to repair kidney reflux X3 Family History Family History Father Diabetes mellitus Hypertension Depression Heart disease Sleep apnea Mother Hypertension Depression Sibling Depression Sleep apnea Grandparent Hypertension Heart disease Cerebrovascular accident Grandparent Hypertension Heart disease Sleep apnea Social History Social History Smoking status: Never smoker Alcohol intake: never Substance use: never Substance use type: does not use Do You Feel Safe in your Home?: Yes Lack of Transportation: No Lack of Food: Never True Current Housing: I Have Housing Concerned About Future Housing: No Difficulty Paying Gas/Electric Bills: No Difficulty Paying for Meds: No Currently Unemployed: No Education: Bachelor's Degree Difficulty w/ Childcare or Family Care: No Living arrangements: with family Gender identity (if verbalized by the patient): Female Agree to blood products: Yes Comments At time of signature, agree with nursing past medical, surgical, social and family history. There is no relevant family history pertinent to the presenting complaint Exam Narrative: GENERAL: Well-appearing, well-nourished, and in no acute distress. HEAD: Normocephalic EYES: PERRLA, conjunctivae clear ENT: Nares clear, turbinates edematous and erythematous, green discharge, sinus pressure,headache. Mucous membranes moist. TM pearly [place] with dull light reflex bilaterally; no tragal tenderness. Oropharynx erythematous without lesions. Tonsils not enlarged and without exudate, no drooling, no hoarseness, no trismus, uvula midline. NECK: Supple. No lymphadenopathy CHEST: Clear to auscultation, breath sounds equal. No wheezing, rhonchi, rales, or stridor. No respiratory distress, speaks in full sentences.cough productive at time, SAO2 99% on room air HEART: Regular rate and rhythm. No murmur heard. SKIN: Warm, dry, no rash. NEURO: Alert and oriented x3. PSYCH: Normal mood and affect Course Course Emergency Course: Patient is aware of diagnosis, understands and agrees to treatment plan.? Anticipatory guidance given.? Patient agrees to follow-up as directed and is aware of reasons to seek care at the emergency department. Portions of this record may have been created with voice recognition software Level of Care: Express Care Visit Vital Signs Vital signs: Vital Signs Temperature 36.2 C L 08/11/25 19:16 Pulse Rate 85 08/11/25 19:16 Respiratory Rate 14 08/11/25 19:16 Blood Pressure 125/75 08/11/25 19:16 Pulse Oximetry 99 08/11/25 19:16 Oxygen Delivery Room Air 08/11/25 19:16 Temperature 36.2 C L 08/11/25 19:16 Pulse Rate 85 08/11/25 19:16 Respiratory Rate 14 08/11/25 19:16 Blood Pressure 125/75 08/11/25 19:16 Pulse Oximetry 99 08/11/25 19:16 Oxygen Delivery Room Air 08/11/25 19:16 Reviewed MDM - URI/Sore Throat MDM Narrative Medical decision making narrative: Differential diagnosis considered: Abreu virus, strep pharyngitis, allergic rhinitis, upper respiratory tract infection, sinusitis, rhinosinusitis, nasopharyngitis. viral pharyngitis, otitis media, otitis externa, pneumonia, bronchitis, viral cough syndrome, viral syndrome, and influenza.? Exam findings show no acute concerns or changes; patient is non-toxic appearing and is in no distress.? Patient is appropriate for outpatient treatment and follow-up. Differential Diagnosis Differential diagnosis: Likely upper respiratory infection, sinusitis, viral infection, influenza and other (COVID) Medical Records Attestation: I reviewed the patient's medical records. Lab Data Attestation: I reviewed the patient's lab results. Lab results narrative: covid antigen negative, Influenza A & B negative Labs: Lab Results 08/11/25 Range/Units 19:28 POC Influenza A Ag Negative (Negative) POC Influenza B Ag Negative (Negative) POC SARS CoV-2 Ag Negative (Negative) reviewed Critical Care Time Critical Care Time Critical Care Time: No Discharge Plan Discharge Clinical Impression: Sinusitis Qualifiers: Sinusitis location: pansinusitis Chronicity: acute Recurrence: non-recurrent Qualified Code(s): J01.40 - Acute pansinusitis, unspecified Patient Disposition: Home Condition: Stable Instructions: Antibiotic Form, Sinusitis (ED) Additional Instructions: Increase fluids especially juices and water [id number] cough and cold medicine of your choice for your symptoms Zyrtec Claritin or Shirin daily Tylenol or ibuprofen for any fever pain heat to the face 20-30 minutes 4-6 times a day for pain Salt water gargles, throat lozenges or throat sprays as desired Antibiotic as directed--finished the medication nausea medication as prescribed If your symptoms persist, change or worsen significantly before you can contact your personal physician then please, without delay, go to the emergency department for further evaluation. Follow-up with PCP in 7-10 days or sooner if needed Patient Language: Tamazight Prescriptions: New cefdinir 300 mg capsule 300 mg PO Q12H Qty: 20 0RF Rx Instructions: take all doses of oral medication ondansetron 4 mg tablet,disintegrating 4 mg PO Q6H PRN (Reason: nausea and vomiting) Qty: 20 0RF Rx Instructions: whatever preparation is covered on insurance No Action Mirena sertraline 100 mg tablet See Rx Instructions .ROUTE .COMPLEX Qty: 90 3RF Dose Instruction: TAKE 1 TABLET BY MOUTH EVERY DAY Rx Instructions: TAKE 1 TABLET BY MOUTH EVERY DAY Qulipta 60 mg tablet See Rx Instructions .ROUTE .COMPLEX Qty: 90 3RF Dose Instruction: TAKE 1 TABLET BY MOUTH EVERY DAY Rx Instructions: TAKE 1 TABLET BY MOUTH EVERY DAY Follow-up/Referrals: Harper Araujo APRN [Primary Care Provider, Family Practice] Stand Alone Forms: Work/School Release IP Time of Disposition: 19:40 Quality Dulce Coma Scale Eyes: Open Verbal: Oriented and Alert Motor: Follows Commands Dulce Coma Total Score: 15
[2025-08-12 11:51] LABS: EDCOVIDSCREEN Negative (Negative); EDINFLUASCREEN Negative (Negative); EDINFLUBSCREEN Negative (Negative)
== END 2025-08-11 19:47 | disposition home or self-care (01) ==
PROVIDERS: Emergency Provider Registered Nurse; PCP Nurse Practitioner Adult Health
DX: J01.40 Acute pansinusitis, unspecified (principal); Z20.822 Contact with and (suspected) exposure to COVID-19; F41.9 Anxiety disorder, unspecified; F32.A Depression, unspecified
CPT/HCPCS: 87426; 87804; 99213; G0463